=== PATIENT | female | born 1960 | race Caucasian/White ===

== ENCOUNTER 2020-03-03 09:51 | Outpatient (CLI) | payer BC, OTHER, SELFPAY ==
--- NOTE | 2020-03-03 | ECG_ITS ---
Measurements Intervals [place] Rate: 90 P: 61 UT: 161 QRS: 14 QRSD: 92 T: 14 QT: 369 QTc: 453 Interpretive Statements SINUS RHYTHM FREQUENT VENTRICULAR PREMATURE COMPLEXES POSSIBLE LEFT ATRIAL ENLARGEMENT BASELINE ARTIFACT= I, II, III, AVR, AVL, V1-V3, V6 ABNORMAL ECG Electronically Signed On 03-03-2020 10:38:25 GROUTER HELPER by Colin Haas D.O.
== END 2020-03-03 09:52 | disposition home or self-care (01) ==
PROVIDERS: PCP Family Medicine; Visit Provider Podiatrist Foot & Ankle Surgery
DX: R03.0 Elevated blood-pressure reading, without diagnosis of hypertension (principal); R94.31 Abnormal electrocardiogram [ECG] [EKG]
CPT/HCPCS: 93005

== ENCOUNTER 2021-03-30 17:50 | Inpatient (IN) | payer BC, OTHER, SELFPAY ==
--- NOTE | ~2021-03-30 | CT_ITS ---
EXAMINATION: CT abdomen pelvis wo con DATE: 03/30/2021 18:34 INDICATION: Nephrolithiasis presenting with left flank pain TECHNIQUE: Computed tomography (CT) of the abdomen and pelvis was performed without intravenous contr ast. Automated exposure control and iterative reconstruction technique were employed. The dose-length product was 1138.78 mGy-cm. COMPARISON: 02/05/2018 FINDINGS: Lung bases are clear. Heart size is normal. No pericardial or pleural effusion. Diffuse hepatic steat osis. Gallbladder, spleen, pancreas, bilateral adrenal glands and right kidney are normal. There is p rominent left perinephric and periureteral stranding. No hydronephrosis or evident urolithiasis. Deco mpressed bladder, uterus and bilateral adnexa are unremarkable. Several phleboliths in the pelvis. Pa wels are normal. No free intraperitoneal gas or fluid. No pathologically enlarged abdominal or pelvic lymphadenopathy. Mild thoracolumbar spondylosis. Right sacral nerve root stimulator with lead extend ing through the right S3 neural foramen. IMPRESSION: 1. Left perinephric and periureteral stranding but without urolithiasis or associated hydronephrosis. Differential would include either ascending urinary tract infection or recently passed stone. Reviewed, dictated and finalized at location A. L BUSINESS REPRESENTATIVE IMPRESSION: 1. Left perinephric and periureteral stranding but without urolithiasis or asso ciated hydronephrosis. Differential would include either ascending urinary trac t infection or recently passed stone.
[2021-03-30 17:52] VITALS: BP 141/90; PULSE 112; RESP 19; TEMP 37; O2SAT 100
[2021-03-30 18:34] LABS: Hematocrit 38.4 % (37.0-47.0); Hemoglobin 12.7 g/dL (12.0-15.0); Mean Corpuscular HGB Conc 33.1 g/dl (32-36); Mean Corpuscular Hemoglobin 30.9 pg (26-34); Mean Corpuscular Volume 93.4 fl (80-100); Mean Platelet Volume 11.9 fl (7.4-10.4); Platelet Count Result 203 k/mm3 (150-375); Red Blood Count 4.11 M/mm3 (4.2-5.4); Red Cell Distribution Width 13.2 % (11.5-14.5); White Blood Count 18.2 K/mm3 (4.5-10.0)
[2021-03-30] MEDS: HYDROmorphone HCL INJ (*CRX) 1 MG/ML SYR 0.5 MG IV PUSH (18:43)
[2021-03-30] MEDS: SODIUM CHLORIDE 0.9% IV 1,000 ML 999 ML IV CONT ×2 (18:44→23:31)
[2021-03-30] MEDS: ONDANSETRON INJ 4 MG/2 ML VIAL IV PUSH (18:44)
[2021-03-30] MEDS: TAMSULOSIN HCL 0.4 MG CAPSULE PO (18:44)
[2021-03-30 18:46] LABS: Alanine Aminotransferase 46 U/L (4-35); Albumin Level 3.9 g/dL (3.5-5.1); Alkaline Phosphatase 144 U/L (38-126); Anion Gap 9 mmol/L (8-16); Aspartate Amino Transferase 51 U/L (14-36); Bilirubin,Total 1.3 mg/dL (0.2-1.3); Blood Urea Nitrogen 30 mg/dL (7-17); Calcium 8.2 mg/dL (8.4-10.2); Carbon Dioxide 27 mmol/L (22-30); Chloride 90 mmol/L (98-107); Estimated CRCL calculation 52 ml/min; Estimated Glomerular Filt Rate 35; Glucose 333 mg/dL (65-110); Lipase 66 U/L (23-300); Potassium 3.2 mmol/L (3.4-5.0); Sodium 126 mmol/L (137-145)
[2021-03-30 19:02] LABS: Band Neutrophils Percent 12 % (0-6); Lymphocytes Absolute Manual 2.91 K/mm3 (1.1-4.5); Monocytes Absolute Manual 0.54 K/mm3 (0.1-0.90); Monocytes Percent Manual 3 % (3-9); Neutrophils Absolute Manual 14.74 K/mm3 (1.7-7.2); Neutrophils Percent Manual 69 % (46-73); Platelet Estimate Adequate (Adequate); Total Cells Counted 100
[2021-03-30 19:03] LABS: Large Platelets Present
--- NOTE | 2021-03-30 19:20 | PC.NURSE ---
Assuming care of pt.
[2021-03-30 20:10] VITALS: BP 116/67; PULSE 103; RESP 18; O2SAT 96
--- NOTE | 2021-03-30 20:51 | ED.ABDPAIN ---
HPI - Abdominal Pain General Chief Complaint: Abdominal Pain Stated Complaint: flank pain Time Seen by Provider: 03/30/21 18:14 Source: patient and family Mode of arrival: ambulatory Limitations: no limitations History of Present Illness HPI narrative: Patient 61 years old white female presents with left flank pain that started 5 days ago, gradually getting worse. Associated with nausea and chills. History of kidney stone. Patient denies any fever or vomiting. Patient reports a history of gestational diabetes over 30 years ago, last blood work-up was over 2 years ago Related Data Home Medications Medication Instructions Recorded Confirmed fexofenadine 180 mg tablet 180 mg PO DAILY 01/01/19 Allergies Allergy/AdvReac Type Severity Reaction Status Date / Time Cephalosporins Allergy Severe HIVES Verified 12/19/19 10:26 dextromethorphan Allergy Severe RASH Verified 12/19/19 10:26 povidone-iodine Allergy Severe BLISTERS Verified 12/19/19 10:26 Quinolones Allergy Severe HIVES Verified 12/19/19 10:26 soap Allergy Severe BLISTERS Verified 12/19/19 10:26 celecoxib Allergy Intermediate HIVES Verified 12/19/19 10:26 cefaclor Allergy Unknown Unknown Verified 12/19/19 10:26 ciprofloxacin Allergy Unknown unknown Verified 12/19/19 10:26 clarithromycin Allergy Unknown unknown Verified 12/19/19 10:26 nitrofurantoin Allergy Unknown unknown Verified 12/19/19 10:26 ofloxacin Allergy Unknown Hives / Verified 12/19/19 10:26 Red Face Penicillins Allergy Unknown unknown Verified 12/19/19 10:26 pseudoephedrine Allergy Unknown unknown Verified 12/19/19 10:26 Sulfa (Sulfonamide Allergy Unknown unknown Verified 12/19/19 10:26 Antibiotics) sulfanilamide Allergy Unknown unknown Verified 12/19/19 10:26 NITRATE Allergy Mild HIVES Uncoded 01/01/19 15:15 Review of Systems Review of Systems: CONSTITUTIONAL: Denies fever, chills, or sweats. EYES: Denies visual changes, redness, or discharge. ENT: Denies rhinorrhea, congestion, sore throat, or otalgia. CARDIOVASCULAR: Denies chest pain, palpitations, or edema. RESPIRATORY: Denies cough or dyspnea. GASTROINTESTINAL: Denies abdominal pain, nausea, vomiting, or diarrhea. GENITOURINARY: Denies dysuria or hematuria. SKIN: Denies rash or itching. MUSCULOSKELETAL: Denies back pain, joint pain, or myalgia. NEUROLOGIC: Denies headache, numbness, or weakness. PSYCHIATRIC: Denies anxiety or depression. [facility] Past Medical History Medical History Cough Depression GERD (gastroesophageal reflux disease) Hiatal hernia Hypertension Kidney stones [place] (obstructive sleep apnea) Surgical History Surgical History History of esophagogastroduodenoscopy (EGD) 2012 Family History Family History Other Diabetes mellitus Family history of cardiomyopathy Family history of kidney stones Family history of malignant neoplasm of breast in first degree relative Hypertension Social History Social History Smoking status: Never smoker Second hand tobacco smoke exposure: No Alcohol intake: current Substance use: never Substance use type: does not use Additional living arrangements comments: and daughter Gender identity (if verbalized by the patient): Female Spiritual care concerns: No Exam Narrative: General appearance: Well-developed, well-nourished Skin: Normal color Head: Normocephalic, nontraumatic Eyes: Clear conjunctiva ENT: Oropharynx normal, ears normal, nose normal Neck: Supple, nontender Chest and respiratory: Airway patent, no respiratory distress, no accessory muscle use Heart: Regular rate/rhythm Abdomen: Soft, moderate tenderness left flank, no organomegaly, quiet bowel sounds Vascular: Normal peripheral pulses, normal capillary refill. Musculoskeletal: Normal r
[2021-03-30 21:44] LABS: Add Urine Microscopic? YES; Appearance Urine Turbid (Clear); Bacteria Urine 2+ /hpf; Bilirubin Urine Negative (Negative); Blood Urine 1+ (Negative); Color Urine Amber (Yellow); Glucose Urine UA 3+ mg/dL (Negative); Ketones Urine Negative (Negative); Leukocyte Esterase Ur 3+ LEU/UL (Negative); Mucus Urine Moderate /lpf; Nitrate Urine Negative (Negative); Protein Urine 3+ mg/dL (Negative); Specific Grav Ur 1.018 (1.001-1.035); Squamous Epithelial Cell Urine Moderate /hpf (Few); WBC Urine >75 /hpf
[2021-03-30 22:16] VITALS: BP 115/75; PULSE 103; RESP 17; TEMP 37.2; O2SAT 96
[2021-03-30 23:27] VITALS: BP 114/75; PULSE 100; RESP 18; O2SAT 95
[2021-03-30] MEDS: POTASSIUM CHLORIDE 20 MEQ TABLET 40 MEQ PO (23:31)
[2021-03-30 23:32] LABS: INR 1.3; Prothrombin Time 15.2 Seconds (11.1-14.7)
[2021-03-30 23:33] LABS: Lactic Acid Reflex 1.5 mmol/L (0.7-2.1)
[2021-03-30 23:54] LABS: CRP 23.8 mg/dL (<1.0)
[2021-03-31] LABS: Hemoglobin A1C 9.8 % (<5.7)
[2021-03-31] MEDS: ERTAPENEM 1 GM/NS 50 ML 1 GM/50 ML BAG IVPB ×2 (00:25→20:40)
[2021-03-31 00:41] VITALS: BP 99/64; PULSE 95; RESP 18; O2SAT 98
[2021-03-31 01:22] VITALS: BMI 47.2
[2021-03-31 01:23] VITALS: BP 114/62; PULSE 91; RESP 18; TEMP 36.1; O2SAT 97
--- NOTE | 2021-03-31 01:24 | ADMGEN ---
This patient, Antoinette Tran, was admitted to 3 [facility] Surg Room 309-01. Patient/family oriented to hospital policies and general routines including ID bracelet, bed and alarms, visiting hours, pain management, procedures, bathroom and other care routines, personal items, smoking policy, room service/diet, and visiting hours. Information on how to activate the Rapid Response Team has been discussed. Patient/Family are encouraged to report perceived risks to care and to ask questions if they do not understand what they are told or what they should do.
[2021-03-31 01:45] VITALS: BP 114/62; PULSE 91; TEMP 36.1; O2SAT 97
[2021-03-31] MEDS: SODIUM CHLORIDE 0.9% IV 1,000 ML 999 ML IV CONT (02:27)
--- NOTE | 2021-03-31 02:32 | PM.IMHP ---
H&P: HPI History of Present Illness Date/Time: 03/31/21 02:32 Chief Complaint: Left flank pain Narrative: 61-year-old female with a past medical history of urge incontinence, obesity class 3, obstructive sleep apnea, diabetes, kidney stones and depression who presented to the with flank pain for 5 days. The patient suspected that she had a recurrent kidney stones or was not too concerned but decided to come in when her pain continued to progressively worsen. She reports that is worse the pain is 6/10 in intensity and was aching in nature. She denied any relieving factors and her pain was worse with percussion over left flank. Although she had been having some chills and subjective fevers at home. She was checked her temperature and her thermometer did not demonstrate true fever. She denied any dysuria. She had not noticed any foul-smelling urine. Over the last 24 hours she had went from heard chronic urinary frequency due to urge incontinence and instead was only able to urinate small amounts. She denies any hematuria. CT demonstrated left-sided pyelonephritis. She reports she has not had a kidney infection in over 20 years. On arrival to the ER patient was noted be hyperglycemic. She did initially denied a history of diabetes but she had a hemoglobin A1c within the computer system from 2019 that was elevated at 6.9. She denies any polydipsia or polyuria from baseline. She she denies numbness or tingling of her extremities. He has not had any cough or congestion. She is vaccinated against COVID-19. She has obstructive sleep apnea but is compliant with her CPAP therapy with pressures of 12. She does have CVA tenderness on exam. She denies any changes in her bowel habits. Review of Systems Review of Systems: 12 systems were reviewed with pertinent positives and negatives per HPI. Except as documented in the HPI, all other systems were reviewed and are negative. [facility] Past Medical History Medical History (Updated 03/31/21 @ 09:33 by Lala Trejo DO) BMI 45.0-49.9, adult Depression Diabetes mellitus Previously diet controlled with A1c of 6.23 December 2018 now A1c 9.24 March 2021 GERD (gastroesophageal reflux disease) Hiatal hernia Hypertension Kidney stones [place] (obstructive sleep apnea) Urge incontinence Surgical History Surgical History History of esophagogastroduodenoscopy (EGD) 2012 Family History Family History Other Diabetes mellitus Family history of cardiomyopathy Family history of kidney stones Family history of malignant neoplasm of breast in first degree relative Hypertension Social History Social History Smoking status: Never smoker Second hand tobacco smoke exposure: No Alcohol intake: current Drinks per week: 1 Substance use: never Substance use type: does not use Additional living arrangements comments: and daughter Gender identity (if verbalized by the patient): Female Spiritual care concerns: No Meds Home Medications and Allergies Home Medications Medication Instructions Recorded Confirmed Type valsartan 160 1 tablet PO DAILY #90 tablet 08/24/20 03/31/21 Rx mg-hydrochlorothiazide 12.5 mg tablet omeprazole 40 mg capsule,delayed 40 mg PO DAILY #90 cap 12/02/20 03/31/21 Rx release desvenlafaxine 100 mg 100 mg PO DAILY #90 tablet 03/05/21 03/31/21 Rx tablet,extended release 24 hour aripiprazole 5 mg PO DAILY 03/31/21 03/31/21 History atorvastatin 10 mg PO DAILY 03/31/21 03/31/21 History hydrochlorothiazide 12.5 mg PO DAILY 03/31/21 03/31/21 History montelukast 10 mg PO HS 03/31/21 03/31/21 History nortriptyline 50 mg PO HS 03/31/21 03/31/21 History Allergies Allergy/AdvReac Type Severity Reaction Status Date / Time Cephalosporins Allergy Severe HIVES Verified 12/19/19 1
[2021-03-31 03:22] LABS: Glucose Point of Care 287 mg/dl (65-105)
[2021-03-31] MEDS: SODIUM CHLORIDE 0.9% IV 1,000 ML 125 ML IV CONT ×3 (03:48→23:33)
--- NOTE | 2021-03-31 04:27 | PHAR ---
PHARMACY VERIFIED HOME MED: DESVENLAFAXINE 100 MG ER TABLET TAKE ONE TABLET BY MOUTH ONCE DAILY
[2021-03-31 04:39] LABS: Hematocrit 32.9 % (37.0-47.0); Hemoglobin 10.8 g/dL (12.0-15.0); Mean Corpuscular HGB Conc 32.8 g/dl (32-36); Mean Corpuscular Hemoglobin 30.6 pg (26-34); Mean Corpuscular Volume 93.2 fl (80-100); Mean Platelet Volume 11.8 fl (7.4-10.4); Platelet Count Result 152 k/mm3 (150-375); Red Blood Count 3.53 M/mm3 (4.2-5.4); Red Cell Distribution Width 13.2 % (11.5-14.5); White Blood Count 14.1 K/mm3 (4.5-10.0)
[2021-03-31 04:56] LABS: Anion Gap 10 mmol/L (8-16); Blood Urea Nitrogen 32 mg/dL (7-17); Calcium 6.9 mg/dL (8.4-10.2); Carbon Dioxide 22 mmol/L (22-30); Chloride 99 mmol/L (98-107); Estimated CRCL calculation 49 ml/min; Estimated Glomerular Filt Rate 33; Glucose 280 mg/dL (65-110); Potassium 3.5 mmol/L (3.4-5.0); Sodium 131 mmol/L (137-145)
[2021-03-31 05:38] LABS: Band Neutrophils Percent 15 % (0-6); Lymphocytes Absolute Manual 1.97 K/mm3 (1.1-4.5); Monocytes Absolute Manual 1.12 K/mm3 (0.1-0.90); Monocytes Percent Manual 8 % (3-9); Neutrophils Absolute Manual 10.99 K/mm3 (1.7-7.2); Neutrophils Percent Manual 63 % (46-73); Platelet Estimate Adequate (Adequate); Total Cells Counted 100
[2021-03-31 05:49] VITALS: BP 144/62; PULSE 95; RESP 18; TEMP 35.9; O2SAT 98
[2021-03-31] MEDS: ENOXAPARIN 40 MG/0.4 ML SYRINGE SUB-Q ×2 (09:18→20:39)
[2021-03-31] MEDS: VALSARTAN 160 MG TABLET PO (09:20)
[2021-03-31] MEDS: ATORVASTATIN 10 MG TABLET PO (09:20)
[2021-03-31] MEDS: hydroCHLOROthiazide 12.5 MG CAPSULE PO (09:20)
[2021-03-31] MEDS: PANTOPRAZOLE 40 MG TABLET PO (09:21)
[2021-03-31] MEDS: INSULIN ASPART (*BKC) 100 UNITS/ML SUB-Q ×3 (09:30→16:34)
[2021-03-31 10:25] LABS: Glucose Point of Care 273 mg/dl (65-105)
[2021-03-31 12:13] LABS: Glucose Point of Care 287 mg/dl (65-105)
--- NOTE | 2021-03-31 13:10 | PM.IMPN ---
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 I requested blood cultures be obtained in the ER unfortunately this was not performed. Blood cultures have been ordered at this time. She has numerous drug allergies has been started on ertapenem. Urine cultures are pending. Patient has acute kidney injury likely due to hypovolemia. 30 mL/kilos bolus was ordered in the ER but due to patient's body habitus this would require the patient receive over 4 L fluid bolus at 1 time. I have requested nursing staff only give the patient 3 L in fluid bolus and will then start more conservative fluids with normal saline at 125 mL an hour. Will repeat CBC and BMP in a.m.. Will monitor strict I&O's. Will continue patient's home Arb as long his repeat creatinine in a.m. at has normalized. Patient have borderline low potassium. Will give 40 mEq p.o. potassium and repeat BMP with a.m. labs. The patient technically had diabetes back in 2019 with a hemoglobin A1c of 2.9. She is not on diabetic medications at home. Her hemoglobin A1c is currently above 8 indicating uncontrolled diabetes. The patient will need started on oral hypoglycemic agents prior to discharge. For the short-term will start patient on high-dose sliding scale insulin with Accu-Cheks a.c. HS. Auto titrating CPAP has been ordered. 03/31/2021 Interval history: CT scan of the abdomen shows patient is a pyelonephritis patient being treated with ertapenem, will follow-up on urine culture and further recommendation to follow, will have a PT OT evaluate the patient and further recommendation to follow. Subjective Date/time seen: 03/31/21 13:10 Chief Complaint: Left flank pain HPI-Narrative: 61-year-old female with a past medical history of urge incontinence, obesity class 3, obstructive sleep apnea, diabetes, kidney stones and depression who presented to the with flank pain for 5 days. The patient suspected that she had a recurrent kidney stones or was not too concerned but decided to come in when her pain continued to progressively worsen. She reports that is worse the pain is 6/10 in intensity and was aching in nature. She denied any relieving factors and her pain was worse with percussion over left flank. Although she had been having some chills and subjective fevers at home. She was checked her temperature and her thermometer did not demonstrate true fever. She denied any dysuria. She had not noticed any foul-smelling urine. Over the last 24 hours she had went from heard chronic urinary frequency due to urge incontinence and instead was only able to urinate small amounts. She denies any hematuria. CT demonstrated left-sided pyelonephritis. She reports she has not had a kidney infection in over 20 years. On arrival to the ER patient was noted be hyperglycemic. She did initially denied a history of diabetes but she had a hemoglobin A1c within the computer system from 2019 that was elevated at 6.9. She denies any polydipsia or polyuria from baseline. She she denies numbness or tingling of her extremities. He has not had any coug
[2021-03-31 14:00] VITALS: BP 125/68; PULSE 95; RESP 18; TEMP 36.8; O2SAT 96
[2021-03-31 16:45] LABS: Glucose Point of Care 249 mg/dl (65-105)
[2021-03-31] MEDS: ARIPiprazole 5 MG TABLET PO (20:39)
[2021-03-31] MEDS: NORTRIPTYLINE HCL 25 MG CAPSULE 50 MG PO (20:39)
[2021-03-31] MEDS: MONTELUKAST SODIUM 10 MG TABLET PO (20:39)
[2021-03-31 21:10] LABS: Glucose Point of Care 225 mg/dl (65-105)
[2021-03-31 22:00] VITALS: BP 133/79; PULSE 103; RESP 20; TEMP 36.3; O2SAT 95
[2021-04-01] VITALS (7 sets, daily range): BP systolic 132–157; BP diastolic 85–98; PULSE 94–99; RESP 18–28; TEMP 36.1–37.6; O2SAT 91–93; BMI 47.2
[2021-04-01 06:43] LABS: Hematocrit 31.3 % (37.0-47.0); Hemoglobin 10.2 g/dL (12.0-15.0); Mean Corpuscular HGB Conc 32.6 g/dl (32-36); Mean Corpuscular Hemoglobin 30.4 pg (26-34); Mean Corpuscular Volume 93.2 fl (80-100); Mean Platelet Volume 11.3 fl (7.4-10.4); Platelet Count Result 145 k/mm3 (150-375); Red Blood Count 3.36 M/mm3 (4.2-5.4); Red Cell Distribution Width 13.5 % (11.5-14.5); White Blood Count 14.3 K/mm3 (4.5-10.0)
[2021-04-01 07:00] LABS: Alanine Aminotransferase 32 U/L (4-35); Alkaline Phosphatase 148 U/L (38-126); Anion Gap 5 mmol/L (8-16); Aspartate Amino Transferase 46 U/L (14-36); Bilirubin,Total 0.8 mg/dL (0.2-1.3); Blood Urea Nitrogen 22 mg/dL (7-17); Calcium 7.6 mg/dL (8.4-10.2); Carbon Dioxide 25 mmol/L (22-30); Chloride 101 mmol/L (98-107); Estimated CRCL calculation 70 ml/min; Estimated Glomerular Filt Rate 51; Glucose 208 mg/dL (65-110); Magnesium 1.8 mg/dL (1.6-2.3); Potassium 3.1 mmol/L (3.4-5.0); Sodium 131 mmol/L (137-145)
[2021-04-01 07:44] LABS: Glucose Point of Care 174 mg/dl (65-105)
[2021-04-01] MEDS: VALSARTAN 160 MG TABLET PO (09:46)
[2021-04-01] MEDS: hydroCHLOROthiazide 12.5 MG CAPSULE PO (09:46)
[2021-04-01] MEDS: PANTOPRAZOLE 40 MG TABLET PO (09:48)
[2021-04-01] MEDS: ENOXAPARIN 40 MG/0.4 ML SYRINGE SUB-Q ×2 (09:48→20:23)
[2021-04-01] MEDS: ATORVASTATIN 10 MG TABLET PO (09:48)
[2021-04-01] MEDS: POTASSIUM CHLORIDE 20 MEQ PACKET (FOR LIQUID) 40 MEQ PO (10:00)
[2021-04-01] MEDS: SODIUM CHLORIDE 0.9% IV 1,000 ML 125 ML IV CONT ×2 (11:19→20:25)
[2021-04-01 11:28] LABS: Glucose Point of Care 229 mg/dl (65-105)
[2021-04-01] MEDS: INSULIN ASPART (*BKC) 100 UNITS/ML SUB-Q ×2 (13:19→18:02)
--- NOTE | 2021-04-01 13:33 | PM.IMPN ---
Progress Note: A&P Assessment and Plan (1) Acute pyelonephritis: Code(s): N10 - Acute pyelonephritis Status: Acute (2) [place] (obstructive sleep apnea): Code(s): G47.33 - Obstructive sleep apnea (adult) (pediatric) Status: Acute (3) Acute hypokalemia: Code(s): E87.6 - Hypokalemia Status: Acute (4) Acute kidney injury: Code(s): N17.9 - Acute kidney failure, unspecified Status: Acute (5) Diabetes mellitus with hyperglycemia: Qualifiers: Diabetes mellitus supervisor intermediates insulin use: without supervisor intermediates use Diabetes mellitus type: type 2 Qualified Code(s): E11.65 - Type 2 diabetes mellitus with hyperglycemia Code(s): E11.65 - Type 2 diabetes mellitus with hyperglycemia Status: Acute Additional Plan Patient fit sepsis criteria with tachycardia, leukocytosis with left shift and acute end-organ damage in the setting of acute left pyelonephritis. I requested blood cultures be obtained in the ER unfortunately this was not performed. Blood cultures have been ordered at this time. She has numerous drug allergies has been started on ertapenem. Urine cultures are pending. Patient has acute kidney injury likely due to hypovolemia. 30 mL/kilos bolus was ordered in the ER but due to patient's body habitus this would require the patient receive over 4 L fluid bolus at 1 time. I have requested nursing staff only give the patient 3 L in fluid bolus and will then start more conservative fluids with normal saline at 125 mL an hour. Will repeat CBC and BMP in a.m.. Will monitor strict I&O's. Will continue patient's home Arb as long his repeat creatinine in a.m. at has normalized. Patient have borderline low potassium. Will give 40 mEq p.o. potassium and repeat BMP with a.m. labs. The patient technically had diabetes back in 2019 with a hemoglobin A1c of 2.9. She is not on diabetic medications at home. Her hemoglobin A1c is currently above 8 indicating uncontrolled diabetes. The patient will need started on oral hypoglycemic agents prior to discharge. For the short-term will start patient on high-dose sliding scale insulin with Accu-Cheks a.c. HS. Auto titrating CPAP has been ordered. 03/31/2021 Interval history: CT scan of the abdomen shows patient is a pyelonephritis patient being treated with ertapenem, will follow-up on urine culture and further recommendation to follow, will have a PT OT evaluate the patient and further recommendation to follow. 04/01/2021 Interval history: CT scan of the abdomen showed patient has pyelonephritis, urine culture is growing E coli sensitivities showed sensitive to ertapenem, patient being treated with ertapenem, will follow-up on urine culture and further recommendation to follow,patient with hyperglycemia her A1c 9.8, will consult fire truck driver, will start the patient on metformin and Glucotrol will monitor, will have a PT OT evaluate the patient and further recommendation to follow. Subjective Date/time seen: 04/01/21 13:33 03/31/2021 Interval history: CT scan of the abdomen shows patient is a pyelonephritis patient being treated with ertapenem, will follow-up on urine culture and further recommendation to follow, will have a PT OT evaluate the patient and further recommendation to follow. 04/01/2021 Interval history: CT scan of the abdomen showed patient has pyelonephritis, urine culture is growing E coli sensitivities showed sensitive to ertapenem, patient being treated with ertapenem, will follow-up on urine culture and further recommendation to follow,patient with hyperglycemia her A1c 9.8, will consult fire truck driver, will start the patient on metformin and Glucotrol will monitor, will have a PT OT evaluate the patient and further recommendation to follow. Review of Systems Review of Systems: All systems reviewed & are unremarkable except as noted in HPI and below Exam Narrative: morbidly obese Patient is
[2021-04-01 16:53] LABS: Glucose Point of Care 208 mg/dl (65-105)
--- NOTE | 2021-04-01 18:18 | PC.NURSE ---
@1652- Pt states, While i was eating shredded beef I feel like I was choking Pt further states she no longer feel like choking after sipping on some water. This nurse conducted a focus assessment and pt appeared to be in no sign of distress. Pt was advised to notify nurse if this event occur again. Pt verbalized understanding.
[2021-04-01] MEDS: ERTAPENEM 1 GM/NS 50 ML 1 GM/50 ML BAG IVPB (20:23)
[2021-04-01] MEDS: ARIPiprazole 5 MG TABLET PO (20:24)
[2021-04-01] MEDS: MONTELUKAST SODIUM 10 MG TABLET PO (20:24)
[2021-04-01] MEDS: NORTRIPTYLINE HCL 25 MG CAPSULE 50 MG PO (20:24)
[2021-04-01 21:34] LABS: Glucose Point of Care 225 mg/dl (65-105)
[2021-04-02] MEDS: SODIUM CHLORIDE 0.9% IV 1,000 ML 125 ML IV CONT ×3 (03:57→20:36)
[2021-04-02 05:44] VITALS: BP 153/95; PULSE 97; RESP 18; TEMP 36.9; O2SAT 90
[2021-04-02] MEDS: glipiZIDE 5 MG TABLET PO (06:03)
[2021-04-02 07:12] LABS: Alanine Aminotransferase 39 U/L (4-35); Albumin Level 3.1 g/dL (3.5-5.1); Alkaline Phosphatase 169 U/L (38-126); Anion Gap 10 mmol/L (8-16); Aspartate Amino Transferase 60 U/L (14-36); Bilirubin,Total 0.8 mg/dL (0.2-1.3); Blood Urea Nitrogen 16 mg/dL (7-17); Calcium 7.7 mg/dL (8.4-10.2); Carbon Dioxide 24 mmol/L (22-30); Chloride 100 mmol/L (98-107); Estimated CRCL calculation 77 ml/min; Estimated Glomerular Filt Rate 57; Glucose 191 mg/dL (65-110); Hematocrit 32.4 % (37.0-47.0); Hemoglobin 10.6 g/dL (12.0-15.0); Magnesium 1.9 mg/dL (1.6-2.3); Mean Corpuscular HGB Conc 32.7 g/dl (32-36); Mean Corpuscular Hemoglobin 30.5 pg (26-34); Mean Corpuscular Volume 93.1 fl (80-100); Mean Platelet Volume 11.6 fl (7.4-10.4); Platelet Count Result 177 k/mm3 (150-375); Potassium 3.3 mmol/L (3.4-5.0); Red Blood Count 3.48 M/mm3 (4.2-5.4); Red Cell Distribution Width 13.5 % (11.5-14.5); Sodium 134 mmol/L (137-145); White Blood Count 13.1 K/mm3 (4.5-10.0)
[2021-04-02 08:07] LABS: Glucose Point of Care 142 mg/dl (65-105)
[2021-04-02] MEDS: ATORVASTATIN 10 MG TABLET PO (10:30)
[2021-04-02] MEDS: hydroCHLOROthiazide 12.5 MG CAPSULE PO (10:30)
[2021-04-02] MEDS: ENOXAPARIN 40 MG/0.4 ML SYRINGE SUB-Q ×2 (10:30→20:38)
[2021-04-02] MEDS: POTASSIUM CHLORIDE 20 MEQ TABLET PO (10:30)
[2021-04-02] MEDS: PANTOPRAZOLE 40 MG TABLET PO (10:31)
[2021-04-02] MEDS: VALSARTAN 160 MG TABLET PO (10:31)
[2021-04-02 11:19] LABS: Glucose Point of Care 108 mg/dl (65-105)
[2021-04-02] MEDS: ERTAPENEM 1 GM/NS 50 ML 1 GM/50 ML BAG IVPB (12:07)
[2021-04-02 13:31] VITALS: BP 146/96; PULSE 94; RESP 18; TEMP 36.3; O2SAT 97
--- NOTE | 2021-04-02 14:14 | PM.IMPN ---
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 I requested blood cultures be obtained in the ER unfortunately this was not performed. Blood cultures have been ordered at this time. She has numerous drug allergies has been started on ertapenem. Urine cultures are pending. Patient has acute kidney injury likely due to hypovolemia. 30 mL/kilos bolus was ordered in the ER but due to patient's body habitus this would require the patient receive over 4 L fluid bolus at 1 time. I have requested nursing staff only give the patient 3 L in fluid bolus and will then start more conservative fluids with normal saline at 125 mL an hour. Will repeat CBC and BMP in a.m.. Will monitor strict I&O's. Will continue patient's home Arb as long his repeat creatinine in a.m. at has normalized. Patient have borderline low potassium. Will give 40 mEq p.o. potassium and repeat BMP with a.m. labs. The patient technically had diabetes back in 2019 with a hemoglobin A1c of 2.9. She is not on diabetic medications at home. Her hemoglobin A1c is currently above 8 indicating uncontrolled diabetes. The patient will need started on oral hypoglycemic agents prior to discharge. For the short-term will start patient on high-dose sliding scale insulin with Accu-Cheks a.c. HS. Auto titrating CPAP has been ordered. 03/31/2021 Interval history: CT scan of the abdomen shows patient is a pyelonephritis patient being treated with ertapenem, will follow-up on urine culture and further recommendation to follow, will have a PT OT evaluate the patient and further recommendation to follow. 04/01/2021 Interval history: CT scan of the abdomen showed patient has pyelonephritis, urine culture is growing E coli sensitivities showed sensitive to ertapenem, patient being treated with ertapenem, will follow-up on urine culture and further recommendation to follow,patient with hyperglycemia her A1c 9.8, will consult environmental educator, will start the patient on metformin and Glucotrol will monitor, will have a PT OT evaluate the patient and further recommendation to follow. 04/02/2021 Interval history: CT scan of the abdomen showed patient has pyelonephritis, urine culture is growing E coli sensitivities showed sensitive to ertapenem, patient being treated with ertapenem, and urine culture showed patient patient sensitive ertapenem, however due to nursing error patient did not receive her antibiotics for last 2 days will resume today, patient with hyperglycemia her A1c 9.8, will consult environmental educator, will start the patient on metformin and Glucotrol however pacing allergic to post medication, patient to be seen by environmental educator and further recommendation to follow, will have a PT OT evaluate the patient and further recommendation to follow. Subjective Date/time seen: 04/02/21 14:14 04/02/2021 Interval history: CT scan of the abdomen showed patient has pyelonephritis, urine culture is growing E coli sensitivities showed sensitive to ertapenem, patient being treated with ertapenem, and urine culture showed patie
[2021-04-02 16:21] LABS: Glucose Point of Care 117 mg/dl (65-105)
[2021-04-02 20:20] VITALS: PULSE 91; RESP 20; O2SAT 97
[2021-04-02] MEDS: ARIPiprazole 5 MG TABLET PO (20:37)
[2021-04-02] MEDS: MONTELUKAST SODIUM 10 MG TABLET PO (20:38)
[2021-04-02] MEDS: NORTRIPTYLINE HCL 25 MG CAPSULE 50 MG PO (20:39)
[2021-04-02 22:00] VITALS: BP 153/91; PULSE 91; RESP 20; TEMP 36.8; O2SAT 97
[2021-04-02 22:10] LABS: Glucose Point of Care 144 mg/dl (65-105)
[2021-04-03] MEDS: SODIUM CHLORIDE 0.9% IV 1,000 ML 125 ML IV CONT ×2 (04:41→12:52)
[2021-04-03 06:00] VITALS: BP 153/86; PULSE 87; RESP 20; TEMP 36.7; O2SAT 99
[2021-04-03 06:20] LABS: Hematocrit 30.9 % (37.0-47.0); Hemoglobin 10.3 g/dL (12.0-15.0); Mean Corpuscular HGB Conc 33.3 g/dl (32-36); Mean Corpuscular Volume 93.1 fl (80-100); Platelet Count Result 214 k/mm3 (150-375); Red Blood Count 3.32 M/mm3 (4.2-5.4); Red Cell Distribution Width 13.6 % (11.5-14.5); White Blood Count 13.4 K/mm3 (4.5-10.0)
[2021-04-03 06:29] LABS: Alanine Aminotransferase 43 U/L (4-35); Alkaline Phosphatase 161 U/L (38-126); Anion Gap 9 mmol/L (8-16); Aspartate Amino Transferase 61 U/L (14-36); Bilirubin,Total 0.7 mg/dL (0.2-1.3); Blood Urea Nitrogen 14 mg/dL (7-17); Carbon Dioxide 26 mmol/L (22-30); Chloride 101 mmol/L (98-107); Estimated CRCL calculation 85 ml/min; Estimated Glomerular Filt Rate > 60; Glucose 150 mg/dL (65-110); Magnesium 1.9 mg/dL (1.6-2.3); Potassium 3.3 mmol/L (3.4-5.0); Sodium 136 mmol/L (137-145)
[2021-04-03 08:06] LABS: Glucose Point of Care 137 mg/dl (65-105)
[2021-04-03] MEDS: hydroCHLOROthiazide 12.5 MG CAPSULE PO (08:25)
[2021-04-03] MEDS: ENOXAPARIN 40 MG/0.4 ML SYRINGE SUB-Q (08:25)
[2021-04-03] MEDS: ATORVASTATIN 10 MG TABLET PO (08:25)
[2021-04-03] MEDS: VALSARTAN 160 MG TABLET PO (08:25)
[2021-04-03 12:03] LABS: Glucose Point of Care 163 mg/dl (65-105)
[2021-04-03] MEDS: ERTAPENEM 1 GM/NS 50 ML 1 GM/50 ML BAG IVPB (12:49)
--- NOTE | 2021-04-03 13:07 | PM.DS ---
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 The patient suspected that she had a recurrent kidney stones or was not too concerned but decided to come in when her pain continued to progressively worsen. She reports that is worse the pain is 6/10 in intensity and was aching in nature. She denied any relieving factors and her pain was worse with percussion over left flank. Although she had been having some chills and subjective fevers at home. She was checked her temperature and her thermometer did not demonstrate true fever. She denied any dysuria. She had not noticed any foul-smelling urine. Over the last 24 hours she had went from heard chronic urinary frequency due to urge incontinence and instead was only able to urinate small amounts. She denies any hematuria. CT demonstrated left-sided pyelonephritis. She reports she has not had a kidney infection in over 20 years. On arrival to the ER patient was noted be hyperglycemic. She did initially denied a history of diabetes but she had a hemoglobin A1c within the computer system from 2019 that was elevated at 6.9. She denies any polydipsia or polyuria from baseline. She she denies numbness or tingling of her extremities. He has not had any cough or congestion. She is vaccinated against COVID-19. She has obstructive sleep apnea but is compliant with her CPAP therapy with pressures of 12. She does have CVA tenderness on exam. She denies any changes in her bowel habits. Hospital Course: [facility] [place], [place] [id number] Hospitalist Progress NoteSigned Patient: Antoinette Tran KMR#: [id number]: 2Acct:[id number]/Sex: 61 / FADM Date: 03/30/21Loc: [id number] Dr: Lala Trejo DO cc: ~ Progress Note: A&P Assessment and Plan (1) Acute pyelonephritis: Code(s): N10 - Acute pyelonephritis Status: Acute (2) [place] (obstructive sleep apnea): Code(s): G47.33 - Obstructive sleep apnea (adult) (pediatric) Status: Acute (3) Acute hypokalemia: Code(s): E87.6 - Hypokalemia Status: Acute (4) Acute kidney injury: Code(s): N17.9 - Acute kidney failure, unspecified Status: Acute (5) Diabetes mellitus with hyperglycemia: Qualifiers: Diabetes mellitus type: type 2 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 I requested blood cultures be obtained in the ER unfortunately this was not performed. Blood cultures have been ordered at this time. She has numerous drug
[2021-04-03 14:00] VITALS: BP 149/86; PULSE 87; RESP 18; TEMP 36.1; O2SAT 98
== END 2021-04-03 16:30 | disposition home or self-care (01) | DRG 690 ==
LOC: ANHED 22:19 → ANH3MEDSUR 03-31 13:46
PROVIDERS: Admitting Provider Internal Medicine; Emergency Provider Emergency Medicine; PCP Family Medicine; Visit Provider Family Medicine
DX: N39.0 Urinary tract infection, site not specified (principal); Z68.42 Body mass index [BMI] 45.0-49.9, adult; N17.9 Acute kidney failure, unspecified; B96.20 Unspecified Escherichia coli [E. coli] as the cause of diseases classified elsewhere; E87.6 Hypokalemia; E11.65 Type 2 diabetes mellitus with hyperglycemia; E66.01 Morbid (severe) obesity due to excess calories; F32.A Depression, unspecified; G47.33 Obstructive sleep apnea (adult) (pediatric); I10 Essential (primary) hypertension; K21.9 Gastro-esophageal reflux disease without esophagitis; Z88.0 Allergy status to penicillin; Z87.442 Personal history of urinary calculi; Z88.2 Allergy status to sulfonamides
CPT/HCPCS: 36415; 51701; 74176; 80048; 80053; 81001; 82948; 83036; 83605; 83690; 83735; 85025; 85027; 85610; 85730; 86140; 87040; 87077; 87086; 87186; 94660; 96361; 96374; 96375; 99285; A9270; J0131; J1170; J1335; J1650; J1815; J2405; J7030

== ENCOUNTER 2021-05-26 10:53 | Outpatient (RCR) | payer BC, OTHER, SELFPAY ==
[2021-05-26 10:59] VITALS: BMI 45.3
[2021-05-26 11:05] VITALS: BMI 45.3
== END 2021-08-10 13:19 | disposition home or self-care (01) ==
LOC: ANHDMC 10:53
PROVIDERS: PCP Family Medicine; Visit Provider Physician Assistant
DX: E11.65 Type 2 diabetes mellitus with hyperglycemia (principal); Z71.3 Dietary counseling and surveillance
CPT/HCPCS: 97802

== ENCOUNTER 2021-07-27 09:49 | Outpatient (CLI) | payer BC, OTHER, SELFPAY ==
[2021-07-27 10:20] LABS: Hemoglobin A1C 6.2 % (<5.7)
[2021-07-27 10:23] LABS: Alanine Aminotransferase 30 U/L (6-35); Albumin Level 4.5 g/dL (3.5-5.1); Alkaline Phosphatase 105 U/L (38-126); Anion Gap 8 mmol/L (8-16); Aspartate Amino Transferase 37 U/L (14-36); Bilirubin,Total 0.3 mg/dL (0.2-1.3); Blood Urea Nitrogen 23 mg/dL (7-17); Calcium 9.1 mg/dL (8.4-10.2); Carbon Dioxide 30 mmol/L (22-30); Chloride 104 mmol/L (98-107); Cholesterol 154 mg/dL (0-200); Estimated Glomerular Filt Rate 46; Glucose 127 mg/dL (65-110); HDL Direct 35 mg/dL; Potassium 3.7 mmol/L (3.4-5.0); Sodium 142 mmol/L (137-145); Triglycerides 123 mg/dL (<150)
[2021-07-27 10:34] LABS: LDL Cholesterol Direct 82 mg/dL
== END 2021-07-27 09:50 | disposition home or self-care (01) ==
LOC: ANHLAB 09:51
PROVIDERS: PCP Family Medicine; Visit Provider Family Medicine
DX: E11.65 Type 2 diabetes mellitus with hyperglycemia (principal); I10 Essential (primary) hypertension; Z13.1 Encounter for screening for diabetes mellitus
CPT/HCPCS: 36415; 80053; 80061; 83036

== ENCOUNTER 2021-12-14 14:45 | Outpatient (CLI) | payer BC, OTHER, SELFPAY ==
--- NOTE | ~2021-12-14 | XR_ITS ---
XR sacrum coccyx min 2V DATE: 12/14/2021 15:07 INDICATION: Overactive bladder TECHNIQUE: AP and lateral views COMPARISON: None FINDINGS: Mild lumbar levoscoliosis. No pelvic fracture or bone destruction. There is mild right ost eitis pubis. The sacroiliac joints are intact. No sacral or coccygeal fracture or bone destruction i s evident. There is a posterior right battery pack with lead extending through the right S3 neural foramen poste roanteriorly. IMPRESSION: Right sacral neural foraminal neurotransmitter lead Mild right osteitis pubis Reviewed, dictated and finalized at location A.
== END 2021-12-14 14:46 | disposition home or self-care (01) ==
PROVIDERS: PCP Family Medicine; Visit Provider Urology
DX: N32.81 Overactive bladder (principal); M86.8X8 Other osteomyelitis, other site; Z96.82 Presence of neurostimulator
CPT/HCPCS: 72220

== ENCOUNTER 2022-01-28 08:02 | Outpatient (CLI) | payer BC, OTHER, SELFPAY ==
[2022-01-28 08:36] LABS: Basophils Absolute Auto 0.1 K/mm3 (0.0-0.1); Basophils Percent Auto 0.7 % (0.2-1.2); Eosinophils Absolute Auto 0.4 K/mm3 (0-0.3); Eosinophils Percent Auto 3.3 % (0-4.4); Hematocrit 41.1 % (37.0-47.0); Hemoglobin 13.2 g/dL (12.0-15.0); Immature Granulocyte Absolute 0.04 K/mm3 (0.00-0.031); Immature Granulocyte Percent A 0.4 % (0-0.5); Lymphocytes Absolute Auto 5.01 K/mm3 (0.9-3.2); Lymphocytes Percent Auto 47.2 % (18.3-44.2); Mean Corpuscular HGB Conc 32.1 g/dl (32-36); Mean Corpuscular Hemoglobin 28.9 pg (26-34); Mean Corpuscular Volume 89.9 fl (80-100); Monocytes Absolute Auto 0.8 K/mm3 (0.1-0.6); Monocytes Percent Auto 7.3 % (2.6-8.5); Neutrophils Absolute Auto 4.4 K/mm3 (1.3-6.7); Neutrophils Percent Auto 41.1 % (45.5-73.1); Platelet Count Result 242 k/mm3 (150-375); Red Blood Count 4.57 M/mm3 (4.2-5.4); White Blood Count 10.6 K/mm3 (4.5-10.0)
[2022-01-28 09:39] LABS: Alanine Aminotransferase 24 U/L (6-35); Albumin Level 4.4 g/dL (3.5-5.1); Alkaline Phosphatase 94 U/L (38-126); Anion Gap 7 mmol/L (8-16); Aspartate Amino Transferase 33 U/L (14-36); Bilirubin,Total 0.6 mg/dL (0.2-1.3); Blood Urea Nitrogen 18 mg/dL (7-17); Carbon Dioxide 29 mmol/L (22-30); Chloride 101 mmol/L (98-107); Cholesterol 167 mg/dL (0-200); Estimated Glomerular Filt Rate 57; Glucose 123 mg/dL (65-110); HDL Direct 42 mg/dL; Potassium 3.5 mmol/L (3.4-5.0); Sodium 137 mmol/L (137-145); Triglycerides 121 mg/dL (<150)
[2022-01-28 09:49] LABS: LDL Cholesterol Direct 80 mg/dL
[2022-01-28 10:50] LABS: Hemoglobin A1C 6.1 % (<5.7)
[2022-01-28 14:33] LABS: Vitamin D 25 Hydroxy 43.3 ng/mL
== END 2022-01-28 08:03 | disposition home or self-care (01) ==
LOC: ANHLAB 08:04
PROVIDERS: PCP Family Medicine; Visit Provider Family Medicine
DX: R53.83 Other fatigue (principal); E55.9 Vitamin D deficiency, unspecified; E11.9 Type 2 diabetes mellitus without complications; E78.2 Mixed hyperlipidemia; D64.9 Anemia, unspecified
CPT/HCPCS: 36415; 80053; 80061; 82306; 83036; 84443; 85025

== ENCOUNTER → 2022-03-17 13:24 | Outpatient (CLI) | payer BC, OTHER, SELFPAY ==
--- NOTE | ~2022-03-17 | MM_ITS ---
EXAMINATION: MM screening tarsha BI w tomeka HISTORY: Screening TECHNIQUE: Craniocaudal and mediolateral oblique 3-D tomosynthesis images were obtained and synthetic 2-D images were generated. CAD analysis was submitted and interpreted. COMPARISON: Comparison to multiple prior studies sequentially, with oldest reviewed study dated 10/31. BREAST PARENCHYMAL COMPOSITION: Breast composed of scattered areas of fibroglandular density FINDINGS: There is no evidence of suspicious mass, calcification, or architectural distortion to sugg est malignancy in either breast. There has been no suspicious interval change. IMPRESSION: 1. No mammographic evidence of malignancy. 2. Recommend routine screening mammography in one year. BI-RADS Category 1: Negative Reviewed, dictated and finalized at location A. ICAL TRIAL ASSISTANT
== END ==
PROVIDERS: PCP Family Medicine; Visit Provider Obstetrics & Gynecology
DX: Z12.31 Encounter for screening mammogram for malignant neoplasm of breast (principal)
CPT/HCPCS: 77063; 77067

== ENCOUNTER → 2022-03-19 14:10 | Outpatient (CLI) | payer BC, OTHER, SELFPAY ==
--- NOTE | ~2022-03-19 | DEXA_ITS ---
Bone Density Report Name: KE GUDINO Age: 62 Sex: Female Ethnicity: White Date of : 1960 Indication: postmenopausal; screening for osteoporosis; height loss; prior fracture; Referring Provider: BRIANA APPIAH Study: Bone densitometry was performed. Exam Date: March 19, 2022 Accession number: [id number] Bone Density: Region BMD T-score Z-score Classification AP Spine (L1-L4) 0.952 -0.9 0.6 Normal Femoral Neck (Left) 0.854 0.0 1.4 Normal Total Hip (Left) 1.034 0.8 1.8 Normal Femoral Neck (Right) 0.822 -0.2 1.1 Normal Total Hip (Right) 1.022 0.7 1.7 Normal Total Hip Mean 1.028 0.8 1.8 Normal World Health Organization criteria for BMD impression classify patients as: Normal (T-score at or above -1.0), Osteopenia (T-score between -1.0 and -2.5), or Osteoporosis (T-score at or below -2.5). 10-year Fracture Risk: FRAX not reported because: All T-scores for Spine Total, Hip Total, Femoral Neck at or above -1.0 Previous Exams: Region Exam Age BMD T-score BMD Change BMD Change Date g/cm2 vs Baseline vs Previous AP Spine(L1-L4) 03/19/2022 62 0.952 -0.9 -0.008 0.019 09/30/2016 56 0.933 -1.0 -0.027* -0.027* 10/31/2012 52 0.960 -0.8 Total Hip(Left) 03/19/2022 62 1.034 0.8 -0.032* -0.136* 09/30/2016 56 1.170 1.9 0.104* 0.104* 10/31/2012 52 1.066 1.0 Total Hip(Right) 03/19/2022 62 1.022 0.7 -0.022 -0.094* 09/30/2016 56 1.116 1.4 0.072* 0.072* 10/31/2012 52 1.044 0.8 *Denotes significance at 95% confidence level, LSC for AP Spine = 0.022 g/cm2, LSC for Total Hip = 0.027 g/cm2 Clinical Information Provided by Patient: Has had a low trauma fracture Has used the following medications: Vitamin D, MTV, IUD in the past Patient maximum height was 67.5 Menopause Age: 56 No regular weight bearing exercise Drinks caffeinated beverages Onset of menses at age 12 Number of children 3 Missed period for more than 6 months in a row Impression: The patient has normal bone mass. The patient has risk factors, including: previous fracture. The BMD for the Total Hip(Left) decreased, changing by -0.136 since the last DXA exam. The BMD for the Total Hip(Right) decreased, changing by -0.094 since the last DXA exam. Discussion: BONE DENSITY IS ABOVE THE MINIMUM DESIRABLE LEVEL AT ALL SKELETAL SITES TESTED. Thi
== END ==
PROVIDERS: PCP Family Medicine; Visit Provider Family Medicine
DX: Z78.0 Asymptomatic menopausal state (principal)
CPT/HCPCS: 77080

== ENCOUNTER 2022-03-26 00:15 | Day surgery (SDC) | payer BC, OTHER, SELFPAY ==
[2022-03-15 12:27] VITALS: BMI 41.6
--- NOTE | 2022-03-15 12:32 | PC.NURSE ---
Report to the Outpatient Waiting Room, entrance under the green pavilion located off [facility], at time 0700 on date 03/26/22. Planned Procedure Time: 0900. Time changes happen often and if your time is changed the preop area will call you the afternoon before. - You and your visitor will be asked to self-screen and do not enter if you have any COVID symptoms. - Only one visitor is requested with a max of two and NO children visitors are allowed at this time. - The patient visitor may be requested to leave or wait in car when not with patient due to distancing restrictions. - A mask is optional within the hospital at this time. Patients may have clear liquids (water, carbonated beverages, clear teas, apple juice) until 3 hours prior to surgery with a maximum of 20 ounces. - No food from midnight until time of surgery Take the following medications with a SIP of water the morning of surgery: DESVENLAFAXINE DO NOT STOP ANY OF YOUR OTHER PRESCRIPTION MEDICATIONS PRIOR TO SURGERY?EXCEPT THE FOLLOWING Medications to discontinue per physician: VITAMINS/SUPPLEMENTS Date to take last dose: 03/22/22 Please no make-up, nail portuguese, hairspray, perfume, deodorant, or body powder the day of surgery. No jewelry (including any body piercings) or valuables the day of surgery, leave them at home. Please take a shower or bath the night before, or the morning of, surgery with an antibacterial soap. Wear comfortable, loose fitting clothing. - Jewelry must be removed prior to entering the operating room. Rings and piercings that are not removed may be cut off. - The hospital will not accept responsibility for valuables. - Please leave all valuables, including medications, at home the day of surgery. If you are going home after surgery, a licensed transport driver must drive you home. - NO public transportation without another adult if you receive anesthesia. - We recommend that an adult stay with you for 24 hours following discharge. - We also recommend that you do not drive, make important decision, drink alcoholic beverages, or take any drugs that were not prescribed by your health care provider for at least 24 hours after your discharge time. Follow any additional instructions given to you from your surgeon. If you or anyone in your household have experienced Covid symptoms in the past week, please notify your surgeon or the nurse liaison at the phone number below for possible testing. Telephone instructions given to MYKE GUDINO and asked if any additional questions and then verbalized understanding. Patient advised to call surgeon office or pre surgery nurse liaison [phone] if any additional questions.
--- NOTE | 2022-03-25 09:38 | PM.IMHP ---
H&P: HPI History of Present Illness Date/Time: 03/25/22 09:38 Chief Complaint: Urge incontinence Narrative: she has overactive bladder and urge incontinence. She is currently controlled Botox. She has InterStim device placed previously. She desires the device to removed Review of Systems Review of Systems: All systems reviewed & are unremarkable except as noted in HPI and below PMFSH Past Medical History Medical History BMI 45.0-49.9, adult Depression Diabetes mellitus Previously diet controlled with A1c of 6.23 December 2018 now A1c 9.24 March 2021 GERD (gastroesophageal reflux disease) Hiatal hernia Hypertension Kidney stones [place] (obstructive sleep apnea) Urge incontinence Surgical History Surgical History History of ankle surgery History of esophagogastroduodenoscopy (EGD) 2012 Family History Family History Mother Lung cancer Diabetes mellitus Other Family history of cardiomyopathy Family history of kidney stones Family history of malignant neoplasm of breast in first degree relative Hypertension Social History Social History Smoking status: Never smoker Second hand tobacco smoke exposure: No Alcohol intake: current Drinks per week: 1 Alcohol use details: 2/MONTH Substance use: never Substance use type: does not use Lack of Transportation: No Lack of Food: Never True Current Housing: I Have Housing Concerned About Future Housing: No Difficulty Paying Gas/Electric Bills: No Difficulty Paying for Meds: No Currently Unemployed: No Education: Bachelor's Degree Difficulty w/ Childcare or Family Care: No Living arrangements: with family Additional living arrangements comments: and daughter Occupation/Education: occupation Gender identity (if verbalized by the patient): Female Spiritual care concerns: No Agree to blood products: Yes Meds Home Medications and Allergies Home Medications Medication Instructions Recorded Confirmed Type montelukast 10 mg tablet 10 mg PO HS #90 tabs 04/24/21 03/15/22 Rx valsartan 160 1 tablet PO DAILY #90 tabs 08/19/21 03/15/22 Rx mg-hydrochlorothiazide 12.5 mg tablet metformin 500 mg tablet,extended 500 mg PO BID #180 tabs 10/22/21 03/15/22 Rx release 24 hr hydrochlorothiazide 12.5 mg capsule 12.5 mg PO DAILY #90 caps 11/15/21 03/15/22 Rx omeprazole 40 mg capsule,delayed 40 mg PO DAILY #90 caps 11/15/21 03/15/22 Rx release [facility] 12/01/21 01/27/22 Rx Verio test strips) lancets [facility] ([facility] ea 01/17/22 01/27/22 Rx Lancets) aripiprazole 5 mg tablet 5 mg PO DAILY #90 tabs 02/19/22 03/15/22 Rx nortriptyline 25 mg capsule 25 mg PO QHS #30 caps 02/21/22 03/15/22 Rx desvenlafaxine 100 mg 100 mg PO DAILY #90 tabs 02/26/22 03/15/22 Rx tablet,extended release 24 hour multivitamin 1 tablet PO DAILY 03/15/22 03/15/22 History atorvastatin 10 mg tablet 10 mg PO DAILY #90 tabs 03/23/22 Rx Allergies Allergy/AdvReac Type Severity Reaction Status Date / Time Cephalosporins Allergy Severe HIVES Verified 03/15/22 12:25 dextromethorphan Allergy Severe RASH Verified 03/15/22 12:25 povidone-iodine Allergy Severe BLISTERS Verified 03/15/22 12:25 Quinolones Allergy Severe HIVES Verified 03/15/22 12:25 soap Allergy Severe BLISTERS Verified 03/15/22 12:25 celecoxib Allergy Intermediate HIVES Verified 03/15/22 12:25 Nitrate Analogues Allergy Mild Hives Verified 03/15/22 12:25 cefaclor Allergy Unknown Unknown Verified 03/15/22 12:25 ciprofloxacin Allergy Unknown unknown Verified 03/15/22 12:25 clarithromycin Allergy Unknown unknown Verified 03/15/22 12:25 nitrofurantoin Allergy Unknown unknown Verified 03/15/22 12:25 ofloxacin Aller
--- NOTE | ~2022-03-26 | XR_ITS ---
EXAMINATION: XR fluoroscopy no charge DATE: 03/26/2022 10:21 INDICATION: Neural stimulator removal. TECHNIQUE: A single intraoperative fluoroscopic view of the pelvis was obtained. I was not present. F luoroscopy exposure time was 7 seconds. COMPARISON: CT abdomen and pelvis 03/30/2021 FINDINGS: An electrode overlies the sacrum. An instrument overlies the electrode. IMPRESSION: 1. Electrode overlying the sacrum. Reviewed, dictated and finalized at location A. [employer]
--- NOTE | 2022-03-26 07:13 | WPDHPUPDATE1 ---
History and Physical Update Update Date/Time: 03/26/22 07:13 History and Physical has been reviewed, including an updated exam of the patient. There are NO changes in the patient's condition. Risks, benefits, and alternatives have been discussed and questions answered. Patient agrees to proceed with procedure.
[2022-03-26] MEDS: LACTATED RINGERS 1,000 ML 30 ML IV CONT (09:00)
--- NOTE | 2022-03-26 09:03 | WPDANESEPPF ---
Anes - Initial Pre Proc Eval Procedure: Operation Date: 03/26/22 09:45 Proposed Procedures p Removal of Neurostimulator Implant - Jorge Alberto Llamas MD Date/Time: 03/26/22 09:03 Surgeon: Jorge Alberto Llamas MD Pre Op Diagnosis: overactive bladder Patient Data Age: 62 Gender: F Height: 1.7 m Weight: 124.2 kg Allergies Allergy/AdvReac Type Severity Reaction Status Date / Time Cephalosporins Allergy Severe HIVES Verified 03/15/22 12:25 dextromethorphan Allergy Severe RASH Verified 03/15/22 12:25 povidone-iodine Allergy Severe BLISTERS Verified 03/15/22 12:25 Quinolones Allergy Severe HIVES Verified 03/15/22 12:25 soap Allergy Severe BLISTERS Verified 03/15/22 12:25 celecoxib Allergy Intermediate HIVES Verified 03/15/22 12:25 Nitrate Analogues Allergy Mild Hives Verified 03/15/22 12:25 cefaclor Allergy Unknown Unknown Verified 03/15/22 12:25 ciprofloxacin Allergy Unknown unknown Verified 03/15/22 12:25 clarithromycin Allergy Unknown unknown Verified 03/15/22 12:25 nitrofurantoin Allergy Unknown unknown Verified 03/15/22 12:25 ofloxacin Allergy Unknown Hives / Verified 03/15/22 12:25 Red Face Penicillins Allergy Unknown unknown Verified 03/15/22 12:25 pseudoephedrine Allergy Unknown unknown Verified 03/15/22 12:25 Sulfa (Sulfonamide Allergy Unknown unknown Verified 03/15/22 12:25 Antibiotics) sulfanilamide Allergy Unknown unknown Verified 03/15/22 12:25 Home Medications Medication Instructions Recorded Confirmed Type montelukast 10 mg tablet 10 mg PO HS #90 tabs 04/24/21 03/15/22 Rx valsartan 160 1 tablet PO DAILY #90 tabs 08/19/21 03/15/22 Rx mg-hydrochlorothiazide 12.5 mg tablet metformin 500 mg tablet,extended 500 mg PO BID #180 tabs 10/22/21 03/15/22 Rx release 24 hr hydrochlorothiazide 12.5 mg capsule 12.5 mg PO DAILY #90 caps 11/15/21 03/15/22 Rx omeprazole 40 mg capsule,delayed 40 mg PO DAILY #90 caps 11/15/21 03/15/22 Rx release blood sugar diagnostic ([facility] #100 ea 12/01/21 01/27/22 Rx Verio test strips) lancets 30 gauge ([facility] #100 ea 01/17/22 01/27/22 Rx Lancets) aripiprazole 5 mg tablet 5 mg PO DAILY #90 tabs 02/19/22 03/15/22 Rx nortriptyline 25 mg capsule 25 mg PO QHS #30 caps 02/21/22 03/15/22 Rx desvenlafaxine 100 mg 100 mg PO DAILY #90 tabs 02/26/22 03/15/22 Rx tablet,extended release 24 hour multivitamin 1 tablet PO DAILY 03/15/22 03/15/22 History atorvastatin 10 mg tablet 10 mg PO DAILY #90 tabs 03/23/22 Rx Patient hx anesthesia problems: none Family hx anesthesia problems: none Results Review: All pre-operative results and documents have been reviewed as part of the pre-operative evaluation. [facility] Past Medical History Medical History BMI 45.0-49.9, adult Depression Diabetes mellitus Previously diet controlled with A1c of 6.23 December 2018 now A1c 9.24 March 2021 GERD (gastroesophageal reflux disease) Hiatal hernia Hypertension Kidney stones [place] (obstructive sleep apnea) Urge incontinence Surgical History Surgical History History of ankle surgery History of esophagogastroduodenoscopy (EGD) 2012 Family History Family History Mother Lung cancer Diabetes mellitus Other Family history of cardiomyopathy Family history of kidney stones Family history of malignant neoplasm of breast in first degree relative Hypertension Social History Social History Smoking status: Never smoker Second hand tobacco smoke exposure: No Alcohol intake: current Drinks per week: 1 Alcohol use details: 2/MONTH Substance use: never Substance use type: does not use Lack of Transportation: No Lack of Food: Never True Current Housing: I Have Housing Concerned About Future Housing: No Difficulty Paying Gas/Tomasa
[2022-03-26 09:07] LABS: Glucose Point of Care 121 mg/dl (65-105)
[2022-03-26 09:13] VITALS: BP 162/78; PULSE 75; RESP 14; TEMP 37; O2SAT 98
[2022-03-26] MEDS: BUPIVACAINE/EPINEPHRINE 0.5% 10 ML VIAL 30 ML INFILTRATE (10:18)
[2022-03-26 10:36] VITALS: BP 122/84; PULSE 81; RESP 12; O2SAT 96
--- NOTE | 2022-03-26 10:45 | W.PM.PROC2 ---
Procedure Note - Detailed Date of Procedure 03/26/22 Pre-op Diagnosis overactive bladder Urge incontinence Post-op Diagnosis Same Procedure Performed Removal of neurostimulator lead and battery Surgeon Jorge Alberto Llamas MD Anesthesia MAC and Local Indications This is a woman with urge incontinence. She is currently receiving Botox. She has InterStim device in place. She would like it removed. She understands risks of bleeding, infection, incomplete device removal, wound complications. She agrees to proceed Findings Uncomplicated device removal Description of Procedure She was correctly identified. Informed consent obtained. She from the operating room. She was given MAC anesthesia. She was placed in prone position. Lower back and buttock were prepped and draped in a sterile fashion. Time-out performed. I anesthetized the skin over the pulse generator. I incised the skin. I explanted the pulse generator. I removed the capsule around the pulse generator. I then used fluoroscopy to I would then a find my sacral lead. I anesthetized the skin. I incised the skin. I removed the sacral lead as entirety. I irrigated out all wounds. I assured hemostasis. I closed subcutaneous tissues with 2-0 Vicryl. Skin with 4-0 Vicryl. Glue was applied. He was awakened transferred to recovery room in stable condition Implants None Estimated Blood Loss -5.0
[2022-03-26] MEDS: diphenhydrAMINE HCl INJ 50 MG/ML VIAL 25 MG IV PUSH (11:02)
[2022-03-26 11:05] VITALS: BP 125/83; PULSE 67; RESP 12
--- NOTE | 2022-03-26 11:31 | SUR.PHASEII ---
1050 pt is noted to have some red blotching on face no other areas noted on rest of body. pt is getting vancomycin intravenous at this time, no itching or pain stated. dr joseph notified and he gave me an order for 25mg iv benadryl once.
--- NOTE | 2022-03-26 11:33 | SUR.PHASEII ---
1135 pt states no reaction noted from the benadryl, izzy is getting better
[2022-03-26 11:35] VITALS: BP 129/81; PULSE 65; RESP 12
== END 2022-03-26 12:05 | disposition home or self-care (01) ==
PROVIDERS: PCP Family Medicine; Visit Provider Urology
PROC: (CPT 64585; principal; 2022-03-26 09:45)
DX: Z45.42 Encounter for adjustment and management of neurostimulator (principal); N39.41 Urge incontinence; N32.81 Overactive bladder; E11.9 Type 2 diabetes mellitus without complications; I10 Essential (primary) hypertension; K21.9 Gastro-esophageal reflux disease without esophagitis; G47.33 Obstructive sleep apnea (adult) (pediatric); F32.A Depression, unspecified; Z79.84 Long term (current) use of oral hypoglycemic drugs; E66.01 Morbid (severe) obesity due to excess calories; Z68.41 Body mass index [BMI] 40.0-44.9, adult
CPT/HCPCS: 64585; 64595; 82948; 99199; J1200; J2250; J2704; J3010; J3370; J7120

== ENCOUNTER 2022-07-22 08:16 | Outpatient (CLI) | payer BC, OTHER, SELFPAY ==
[2022-07-22 08:44] LABS: Alanine Aminotransferase 33 U/L (6-35); Albumin Level 4.3 g/dL (3.5-5.1); Alkaline Phosphatase 80 U/L (38-126); Anion Gap 7 mmol/L (8-16); Aspartate Amino Transferase 33 U/L (14-36); Bilirubin,Total 0.5 mg/dL (0.2-1.3); Blood Urea Nitrogen 21 mg/dL (7-17); Carbon Dioxide 28 mmol/L (22-30); Chloride 106 mmol/L (98-107); Cholesterol 168 mg/dL (0-200); Estimated Glomerular Filt Rate 56; Glucose 134 mg/dL (65-110); HDL Direct 52 mg/dL; Sodium 141 mmol/L (137-145); Triglycerides 142 mg/dL (<150)
[2022-07-22 08:46] LABS: Hemoglobin A1C 6.2 % (<5.7)
[2022-07-22 08:56] LABS: LDL Cholesterol Direct 85 mg/dL
[2022-07-23 12:07] LABS: Creatinine Urine 232.6 mg/dL
== END 2022-07-22 08:17 | disposition home or self-care (01) ==
LOC: ANHLAB 08:17
PROVIDERS: PCP Family Medicine; Visit Provider Family Medicine
DX: E03.9 Hypothyroidism, unspecified (principal); E11.9 Type 2 diabetes mellitus without complications; E78.2 Mixed hyperlipidemia
CPT/HCPCS: 36415; 80053; 80061; 82043; 83036; 84443

== ENCOUNTER 2022-10-13 00:05 | Day surgery (SDC) | payer BC, OTHER, SELFPAY ==
[2022-09-29 13:35] VITALS: BMI 44.6
[2022-10-13 06:18] VITALS: BP 140/87; PULSE 74; RESP 17; TEMP 36.1; O2SAT 98; BMI 44.6
[2022-10-13] MEDS: LACTATED RINGERS 1,000 ML 150 ML IV CONT (06:28)
[2022-10-13 06:29] LABS: Glucose Point of Care 106 mg/dl (65-105)
--- NOTE | 2022-10-13 07:03 | WPDANESEPPF ---
Anes - Initial Pre Proc Eval Procedure: Operation Date: 10/13/22 07:30 Proposed Procedures p Colonoscopy - Sadiq Jean MD Date/Time: 10/13/22 07:03 Surgeon: Sadiq Jean MD Pre Op Diagnosis: Hx colon polyps Patient Data Age: 62 Gender: F Height: 1.7 m Weight: 129.2 kg Last Vital Signs Temp 36.1 C L 10/13/22 06:18 Pulse 74 10/13/22 06:18 Resp 17 10/13/22 06:18 BP 140/87 10/13/22 06:18 Pulse Ox 98 10/13/22 06:18 O2 Del Method Room Air 10/13/22 06:18 Allergies Allergy/AdvReac Type Severity Reaction Status Date / Time Cephalosporins Allergy Severe HIVES Verified 10/13/22 06:16 dextromethorphan Allergy Severe RASH Verified 10/13/22 06:16 povidone-iodine Allergy Severe BLISTERS Verified 10/13/22 06:16 Quinolones Allergy Severe HIVES Verified 10/13/22 06:16 soap Allergy Severe BLISTERS Verified 10/13/22 06:16 celecoxib Allergy Intermediate HIVES Verified 10/13/22 06:16 Nitrate Analogues Allergy Mild Hives Verified 10/13/22 06:16 cefaclor Allergy Unknown Unknown Verified 10/13/22 06:16 ciprofloxacin Allergy Unknown unknown Verified 10/13/22 06:16 clarithromycin Allergy Unknown unknown Verified 10/13/22 06:16 nitrofurantoin Allergy Unknown unknown Verified 10/13/22 06:16 ofloxacin Allergy Unknown Hives / Verified 10/13/22 06:16 Red Face Penicillins Allergy Unknown unknown Verified 10/13/22 06:16 pseudoephedrine Allergy Unknown unknown Verified 10/13/22 06:16 Sulfa (Sulfonamide Allergy Unknown unknown Verified 10/13/22 06:16 Antibiotics) sulfanilamide Allergy Unknown unknown Verified 10/13/22 06:16 Home Medications Medication Instructions Recorded Confirmed Type lancets 30 gauge ([facility] #100 ea 01/17/22 10/13/22 Rx Lancets) multivitamin 1 tablet PO DAILY 03/15/22 10/13/22 History atorvastatin 10 mg tablet 10 mg PO DAILY #90 tabs 03/23/22 10/13/22 Rx montelukast 10 mg tablet 10 mg PO HS #90 tabs 04/15/22 10/13/22 Rx omeprazole 40 mg capsule,delayed 40 mg PO DAILY #90 caps 05/09/22 10/13/22 Rx release blood sugar diagnostic (OneTouch #100 ea 07/15/22 10/13/22 Rx Verio test strips) aripiprazole 5 mg tablet 5 mg PO DAILY #90 tabs 08/03/22 10/13/22 Rx valsartan 160 1 tablet PO DAILY #90 tabs 08/06/22 10/13/22 Rx mg-hydrochlorothiazide 12.5 mg tablet desvenlafaxine 100 mg 100 mg PO DAILY #90 tabs 08/10/22 10/13/22 Rx tablet,extended release 24 hour dulaglutide 1.5 mg/0.5 mL 1.5 mg (0.5 mL) subcut WEEKLY #2 mL 08/25/22 10/13/22 Rx subcutaneous pen injector (Trulicity) metformin 500 mg tablet,extended 500 mg PO BID #180 tabs 10/05/22 10/13/22 Rx release 24 hr hydrochlorothiazide 12.5 mg capsule 12.5 mg PO DAILY #90 caps 10/11/22 10/13/22 Rx Laboratory Tests 10/13/22 06:23 POC Capillary Glucose 106 H mg/dl (65-105) Patient hx anesthesia problems: none Family hx anesthesia problems: none Results Review: All pre-operative results and documents have been reviewed as part of the pre-operative evaluation. [facility] Past Medical History Medical History (Updated 07/21/22 @ 15:50 by Ximena Alfaro MD) BMI 45.0-49.9, adult Depression Diabetes mellitus Previously diet controlled with A1c of 6.23 December 2018 now A1c 9.24 March 2021 GERD (gastroesophageal reflux disease) H/O adenomatous polyp of colon Hiatal hernia Hypertension Kidney stones [place]ON (obstructive sleep apnea) Urge incontinence Surgical History Surgical History History of ankle surgery History of esophagogastroduodenoscopy (EGD) 2012 Family History Family History Mother Lung cancer Diabetes mellitus Other Family history of cardiomyopathy Family history of kidney stones Family history of malignant neoplasm of breast in first degree relative Hypertension Social History Social History (Reviewed 07/21/22 @ 1
--- NOTE | 2022-10-13 07:30 | PM.HPGS ---
History of Present Illness History of Present Illness Consent: Risks, benefits, and alternatives have been discussed and questions answered. Patient agrees to proceed with procedure. Chief complaint: Hx colon polyps Narrative: Antoinette Tran is a 62 year old female with colon polyp 5 years ago Review of Systems Constitutional: Constitutional: Denies headache(s) and Denies weakness Eyes: Eyes: Denies blurry vision ENT: Reports Normal hearing present, Denies headache(s) and Denies neck pain Cardiovascular: Cardiovascular: Denies chest pain and Denies dyspnea Respiratory: Respiratory: Denies dyspnea Gastrointestinal: Gastrointestinal: Reports no additional gastrointestinal complaints Genitourinary: Genitourinary: Denies dysuria Musculoskeletal: Musculoskeletal: Denies neck pain Integumentary/Breasts: Skin/Breast: Denies dry skin Neurologic: Reports Normal hearing present, Denies headache(s) and Denies weakness Psychiatric: Psychiatric: Denies anxiety Endocrine: Endocrine: Denies change in body appearance Hematologic/Lymphatic: Hematologic/Lymphatic: Denies easy bleeding Allergic/Immunologic: Allergic/Immunologic: Denies urticaria PMFSH Past Medical History Medical History (Updated 07/21/22 @ 15:50 by Ximena Alfaro MD) BMI 45.0-49.9, adult Depression Diabetes mellitus Previously diet controlled with A1c of 6.23 December 2018 now A1c 9.24 March 2021 GERD (gastroesophageal reflux disease) H/O adenomatous polyp of colon Hiatal hernia Hypertension Kidney stones [place] (obstructive sleep apnea) Urge incontinence Surgical History Surgical History History of ankle surgery History of esophagogastroduodenoscopy (EGD) 2012 Family History Family History Mother Lung cancer Diabetes mellitus Other Family history of cardiomyopathy Family history of kidney stones Family history of malignant neoplasm of breast in first degree relative Hypertension Social History Social History Smoking status: Never smoker Second hand tobacco smoke exposure: No Alcohol intake: current Drinks per week: 1 Alcohol use details: 2/MONTH Substance use: never Substance use type: does not use Lack of Transportation: No Lack of Food: Never True Current Housing: I Have Housing Concerned About Future Housing: No Difficulty Paying Gas/Electric Bills: No Difficulty Paying for Meds: No Currently Unemployed: No Education: Bachelor's Degree Difficulty w/ Childcare or Family Care: No Living arrangements: with family Additional living arrangements comments: and daughter Occupation/Education: occupation Gender identity (if verbalized by the patient): Female Sexual Orientation (if Verbalized by the Patient): Straight or Heterosexual Spiritual care concerns: No Agree to blood products: Yes Meds Home Medications and Allergies Home Medications Medication Instructions Recorded Confirmed Type lancets 30 gauge ([facility] #[facility] ea 01/17/22 10/13/22 Rx Lancets) multivitamin 1 tablet PO DAILY 03/15/22 10/13/22 History atorvastatin 10 mg tablet 10 mg PO DAILY #90 tabs 03/23/22 10/13/22 Rx montelukast 10 mg tablet 10 mg PO HS #90 tabs 04/15/22 10/13/22 Rx omeprazole 40 mg capsule,delayed 40 mg PO DAILY #90 caps 05/09/22 10/13/22 Rx release blood sugar diagnostic ([facility] #100 ea 07/15/22 10/13/22 Rx Verio test strips) aripiprazole 5 mg tablet 5 mg PO DAILY #90 tabs 08/03/22 10/13/22 Rx valsartan 160 1 tablet PO DAILY #90 tabs 08/06/22 10/13/22 Rx mg-hydrochlorothiazide 12.5 mg tablet desvenlafaxine 100 mg 100 mg PO DAILY #90 tabs 08/10/22 10/13/22 Rx tablet,extended release 24 hour dulaglutide 1.5 mg/0.5 mL 1.5 mg (0.5 mL) subcut WEEKLY #2 mL 08/25/22 10/13/22 Rx subcutaneous pen in
[2022-10-13 07:52] VITALS: BP 108/71; PULSE 68; RESP 14; O2SAT 99
[2022-10-13 08:02] VITALS: BP 131/91; PULSE 65; RESP 23; O2SAT 100
[2022-10-13 08:12] VITALS: BP 113/69; PULSE 63; RESP 20; O2SAT 99
== END 2022-10-13 08:19 | disposition home or self-care (01) ==
PROVIDERS: PCP Family Medicine; Visit Provider Internal Medicine Gastroenterology
PROC: 0DJD8ZZ Inspection of Lower Intestinal Tract, Via Natural or Artificial Opening Endoscopic (ICD-10-PCS; CPT 45378; principal; 2022-10-13 07:30)
DX: Z12.11 Encounter for screening for malignant neoplasm of colon (principal); D12.2 Benign neoplasm of ascending colon; K64.8 Other hemorrhoids; E11.9 Type 2 diabetes mellitus without complications; I10 Essential (primary) hypertension; F32.A Depression, unspecified; G47.33 Obstructive sleep apnea (adult) (pediatric); K21.9 Gastro-esophageal reflux disease without esophagitis; E66.01 Morbid (severe) obesity due to excess calories; Z68.41 Body mass index [BMI] 40.0-44.9, adult; Z79.84 Long term (current) use of oral hypoglycemic drugs; Z79.899 Other long term (current) drug therapy
CPT/HCPCS: 45385; 82948; 88305; J2704; J7120

== ENCOUNTER 2022-12-22 09:29 | Outpatient (CLI) | payer BC, OTHER, SELFPAY ==
[2022-12-22 10:03] LABS: Alanine Aminotransferase 32 U/L (6-35); Albumin Level 4.5 g/dL (3.5-5.1); Alkaline Phosphatase 90 U/L (38-126); Anion Gap 9 mmol/L (8-16); Aspartate Amino Transferase 33 U/L (14-36); Bilirubin,Total 0.6 mg/dL (0.2-1.3); Blood Urea Nitrogen 18 mg/dL (7-17); Calcium 9.3 mg/dL (8.4-10.2); Carbon Dioxide 27 mmol/L (22-30); Chloride 103 mmol/L (98-107); Cholesterol 154 mg/dL (0-200); Estimated Glomerular Filt Rate 56; Glucose 121 mg/dL (65-110); HDL Direct 50 mg/dL; Potassium 3.4 mmol/L (3.4-5.0); Sodium 139 mmol/L (137-145); Triglycerides 91 mg/dL (<150)
[2022-12-22 10:07] LABS: Hemoglobin A1C 5.9 % (<5.7)
[2022-12-22 10:14] LABS: LDL Cholesterol Direct 76 mg/dL
== END 2022-12-22 09:30 | disposition home or self-care (01) ==
LOC: ANHLAB 09:31
PROVIDERS: PCP Family Medicine; Visit Provider Family Medicine
DX: E78.2 Mixed hyperlipidemia (principal); E11.9 Type 2 diabetes mellitus without complications
CPT/HCPCS: 36415; 80053; 80061; 83036

== ENCOUNTER 2023-05-26 09:02 | Outpatient (CLI) | payer BC, OTHER, SELFPAY ==
[2023-05-26 09:49] LABS: Alanine Aminotransferase 56 U/L (6-35); Albumin Level 4.4 g/dL (3.5-5.1); Alkaline Phosphatase 86 U/L (38-126); Anion Gap 5 mmol/L (4-12); Aspartate Amino Transferase 59 U/L (14-36); Bilirubin,Total 0.5 mg/dL (0.2-1.3); Blood Urea Nitrogen 14 mg/dL (7-17); Calcium 9.3 mg/dL (8.4-10.2); Carbon Dioxide 31 mmol/L (22-30); Chloride 103 mmol/L (98-107); Cholesterol 140 mg/dL (0-200); Estimated Glomerular Filt Rate > 60; Glucose 121 mg/dL (65-110); HDL Direct 47 mg/dL; Potassium 3.7 mmol/L (3.4-5.0); Sodium 139 mmol/L (137-145); Triglycerides 100 mg/dL (<150)
[2023-05-26 09:59] LABS: LDL Cholesterol Direct 77 mg/dL
[2023-05-26 10:19] LABS: Hemoglobin A1C 6.4 % (<5.7)
== END 2023-05-26 09:03 | disposition home or self-care (01) ==
LOC: ANHLAB 09:05
PROVIDERS: PCP Family Medicine; Visit Provider Family Medicine
DX: E78.2 Mixed hyperlipidemia (principal); E11.9 Type 2 diabetes mellitus without complications
CPT/HCPCS: 36415; 80053; 80061; 82043; 83036

== ENCOUNTER 2023-08-01 11:39 | Outpatient (CLI) | payer BC, OTHER, SELFPAY ==
--- NOTE | ~2023-08-01 | MM_ITS ---
EXAMINATION: MM screening tarsha BI w tomeka HISTORY: Screening TECHNIQUE: Craniocaudal and mediolateral oblique 3-D tomosynthesis images were obtained and synthetic 2-D images were generated. CAD analysis was submitted and interpreted. COMPARISON: Comparison to multiple prior studies sequentially, with oldest reviewed study dated 11/05. BREAST PARENCHYMAL COMPOSITION: Not dense: There are scattered areas of fibroglandular density. FINDINGS: There is no evidence of suspicious mass, calcification, or architectural distortion to sugg est malignancy in either breast. There has been no suspicious interval change. IMPRESSION: 1. No mammographic evidence of malignancy. 2. Recommend routine screening mammography in one year. BI-RADS Category 1: Negative Reviewed, dictated and finalized at location B.
== END 2023-08-01 11:40 ==
LOC: MICIMG 11:40
PROVIDERS: PCP Family Medicine; Visit Provider Obstetrics & Gynecology
DX: Z12.31 Encounter for screening mammogram for malignant neoplasm of breast (principal)
CPT/HCPCS: 77063; 77067

== ENCOUNTER 2023-12-02 10:51 | Outpatient (CLI) | payer BC, OTHER, SELFPAY ==
[2023-12-02 11:17] LABS: Basophils Absolute Auto 0.1 K/mm3 (0.0-0.1); Eosinophils Absolute Auto 0.1 K/mm3 (0-0.3); Eosinophils Percent Auto 1.9 % (0-4.4); Hematocrit 42.6 % (37.0-47.0); Hemoglobin 13.7 g/dL (12.0-15.0); Immature Granulocyte Absolute 0.02 K/mm3 (0.00-0.031); Immature Granulocyte Percent A 0.4 % (0-0.5); Lymphocytes Absolute Auto 1.53 K/mm3 (0.9-3.2); Lymphocytes Percent Auto 29.4 % (18.3-44.2); Mean Corpuscular HGB Conc 32.2 g/dl (32-36); Mean Corpuscular Hemoglobin 29.3 pg (26-34); Mean Platelet Volume 10.6 fl (7.4-10.4); Monocytes Absolute Auto 0.6 K/mm3 (0.1-0.6); Monocytes Percent Auto 11.9 % (2.6-8.5); Neutrophils Absolute Auto 2.9 K/mm3 (1.3-6.7); Neutrophils Percent Auto 55.4 % (45.5-73.1); Platelet Count Result 231 k/mm3 (150-375); Red Blood Count 4.68 M/mm3 (4.2-5.4); Red Cell Distribution Width 13.9 % (11.5-14.5); White Blood Count 5.2 K/mm3 (4.5-10.0)
[2023-12-02 11:28] LABS: Hemoglobin A1C 6.1 % (<5.7)
[2023-12-02 11:32] LABS: Alanine Aminotransferase 34 U/L (6-35); Albumin Level 4.4 g/dL (3.5-5.1); Alkaline Phosphatase 90 U/L (38-126); Anion Gap 9 mmol/L (4-12); Aspartate Amino Transferase 39 U/L (14-36); Bilirubin,Total 0.5 mg/dL (0.2-1.3); Blood Urea Nitrogen 10 mg/dL (7-17); Calcium 9.3 mg/dL (8.4-10.2); Carbon Dioxide 28 mmol/L (22-30); Chloride 101 mmol/L (98-107); Cholesterol 142 mg/dL (0-200); Estimated Glomerular Filt Rate 56; Glucose 111 mg/dL (65-110); HDL Direct 46 mg/dL; Potassium 3.5 mmol/L (3.4-5.0); Sodium 138 mmol/L (137-145); Triglycerides 96 mg/dL (<150)
[2023-12-02 11:39] LABS: Iron 44 ug/dL (37-170)
[2023-12-02 11:42] LABS: LDL Cholesterol Direct 62 mg/dL
[2023-12-02 11:51] LABS: Percent Iron Saturation 13 % (20-50)
[2023-12-02 12:10] LABS: Hepatitis B Surface Antigen Negative (Negative)
[2023-12-02 12:15] LABS: HAV RESULT Negative (Negative); Hepatitis B Core IgM Result Negative (Negative)
[2023-12-02 12:27] LABS: Hepatitis C Virus Antibody Negative (Negative)
== END 2023-12-02 10:52 | disposition home or self-care (01) ==
LOC: ANHLAB 10:55
PROVIDERS: PCP Family Medicine; Visit Provider Family Medicine
DX: R53.83 Other fatigue (principal); E78.2 Mixed hyperlipidemia; R74.8 Abnormal levels of other serum enzymes; E11.9 Type 2 diabetes mellitus without complications
CPT/HCPCS: 36415; 80053; 80061; 80074; 82728; 83036; 83540; 83550; 84443; 85025

== ENCOUNTER 2024-06-06 11:39 | Outpatient (CLI) | payer BC, OTHER, SELFPAY ==
[2024-06-06 12:08] LABS: Hematocrit 39.7 % (37.0-47.0); Hemoglobin 12.8 g/dL (12.0-15.0); Mean Corpuscular HGB Conc 32.2 g/dl (32-36); Mean Corpuscular Hemoglobin 29.9 pg (26-34); Mean Corpuscular Volume 92.8 fl (80-100); Mean Platelet Volume 10.8 fl (7.4-10.4); Platelet Count Result 253 k/mm3 (150-375); Red Blood Count 4.28 M/mm3 (4.2-5.4); Red Cell Distribution Width 13.3 % (11.5-14.5); White Blood Count 10.6 K/mm3 (4.5-10.0)
[2024-06-06 12:19] LABS: Alanine Aminotransferase 29 U/L (6-35); Albumin Level 4.4 g/dL (3.5-5.1); Alkaline Phosphatase 84 U/L (38-126); Anion Gap 10 mmol/L (4-12); Aspartate Amino Transferase 31 U/L (14-36); Bilirubin,Total 0.5 mg/dL (0.2-1.3); Blood Urea Nitrogen 16 mg/dL (7-17); Carbon Dioxide 28 mmol/L (22-30); Chloride 105 mmol/L (98-107); Cholesterol 144 mg/dL (0-200); Estimated Glomerular Filt Rate > 60; Glucose 87 mg/dL (65-110); HDL Direct 50 mg/dL; Potassium 3.9 mmol/L (3.4-5.0); Sodium 143 mmol/L (137-145); Triglycerides 108 mg/dL (<150)
[2024-06-06 12:30] LABS: LDL Cholesterol Direct 61 mg/dL
[2024-06-06 12:38] LABS: Hemoglobin A1C 5.5 % (<5.7)
[2024-06-06 13:03] LABS: Iron 65 ug/dL (37-170); Vitamin D 25 Hydroxy 53.5 ng/mL
[2024-06-06 13:09] LABS: Percent Iron Saturation 19 % (20-50)
[2024-06-06 13:13] LABS: MALB Creatinine Ratio 2.9 mg/g (0-30); Microalbumin Urine Random 8.2 mg/L (0-16.7)
[2024-06-06 13:34] LABS: Folic Acid > 20.0 ng/mL (2.76->20)
--- OUTSIDE RECORDS SUMMARY | 2024-06-06 13:37 | XMS_ITS | Clinical Summary ---
Author Organization [facility] Address [address] [place] [address] Care Team Providers Care Sweatband Shaper Name Role Phone Ximena Alfaro MD Primary Care Provider [phone] Jamil Mcduffie MD Unavailable [phone] Allergies Active Allergy Reactions Criticality Noted Date Comments Adhesive Tape-Silicones Rash Medium 10/05/2017 Cefaclor Hives Medium 11/08/2016 Celecoxib Hives Medium 07/01/2016 Clarithromycin Hives Medium 07/01/2016 Ofloxacin Hives Medium 07/01/2016 Nickel Hives Medium 08/25/2017 Penicillin G Hives Medium 07/01/2016 Penicillins Hives Medium Pseudoephedrine Hcl Hives Medium 07/01/2016 Sulfa (Sulfonamide Antibiotics) Hives Medium Sulfasalazine Hives Medium 07/01/2016 Medications atorvastatin (LIPITOR) 10 mg tabletIndicatio ns:hyperlipidem ia Take 10 mg by mouth every morning. Active desvenlafaxine succinate (PRISTIQ) 50 mg 24 hr tabletIndicatio ns:major depressive disorder Take 100 mg by mouth every morning. Active fexofenadine (JOSE) 180 mg tabletIndicatio ns:Seasonal Allergic Rhinitis Take 180 mg by mouth every morning. Active hydroCHLOROthia zide (HYDRODIURIL) 12.5 mg tabletIndicatio ns:hypertension Take 12.5 mg by mouth every morning. Active montelukast (SINGULAIR) 10 mg tabletIndicatio ns:Allergic Rhinitis Take 10 mg by mouth nightly. Active nortriptyline (PAMELOR) 10 mg capsuleIndicati ons:depression Take 50 mg by mouth nightly. Active omeprazole (PriLOSEC) 40 mg capsule TAKE ONE CAPSULE BY MOUTH TWICE A DAY for reflux 06/27/2017 Active baclofen (LIORESAL) 10 mg tabletIndicatio ns:Muscle Spasticity of Spinal Origin Take 10 mg by mouth 2 (two) times a day. Active multivitamin capsuleIndicati ons:Vitamin Deficiency Prevention Take 1 capsule by mouth nightly. Active valsartan-hydro CHLOROthiazide (DIOVAN-HCT) 160-12.5 mg per tabletIndicatio ns:hypertension Take 1 tablet by mouth every morning. Active acidophilus-pec tin, citrus 100 million cell-10 mg capsuleIndicati ons:gi Take 1 capsule by mouth every morning. Active UNABLE TO FINDIndications :supplement for vision Take 1 each by mouth every morning. Med Name:zeaxont hin-lutein Active HYDROcodone-katie taminophen (NORCO) 5-325 mg per tabletIndicatio ns:Pain Take 1 tablet by mouth every 4 (four) hours as needed for pain. 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 09/23/2017 Left wrist pain 09/22/2017 Arthritis of foot 11/28/2014 Pain of foot 01/17/2014 Surgical History Surgery Date Site/Laterality Comments SECTION CARPAL TUNNEL RELEASE ANKLE FRACTURE SURGERY ROTATOR CUFF REPAIR INSERTION / REMOVAL EPIDURAL SPINAL NEUROSTIMULATOR SINUS SURGERY 02/14/2009 - 02/13/2010 LITHOTRIPSY 02/14/2007 - 02/14/2008 TUBAL LIGATION 02/14/1995 - 02/14/1996 Medical History Medical History Date Comments Arthritis Depression Gastric reflux Headache Hiatal hernia Hypertension Kidney stone Obesity Osteoarthritis Pneumonia Sleep apnea Urinary tract infection Varicella Depression Hyperlipidemia Seasonal allergies OAB (overactive bladder) Hypertension PONV (postoperative nausea and vomiting) does well with Zofran Delayed emergence from gener al anesthesia difficulty with hard time waking up prior to getting on CPAP machine, No issues since GERD (gastroesophageal reflux disease) Anxiety Diabetes mellitus (HCC) 03/30/2021 Family History Medical History Relation Name Comments Allergy (severe) Father Jamil Arthritis Father Jamil Family history of arthritis - (Added by Conv) Heart disease Father Jamil Family history of cardiac disorder - (Added by Conv) Hypertension Father Jamil Family history of hypertension - (Added by Conv) Kidney disease Father Jamil Family histor y of kidney disease - (Added by Conv) Memory loss Father Jamil Stroke Father Jamil Family history of cerebrovascular accident - (Added by Conv) Diabetes Maternal Grandfather Stevenson Cancer Mother Gunjan Family history of malignant neoplasm - (Added by Conv) Diabetes Mother Gunjan Miscarriages / Stillbirths Mother Gunjan Diabetes Paternal Grandmother [place] Anesthesia problems Neg Hx Clotting disorder Neg Hx Malig Hypertension Neg Hx Malig Hyperthermia Neg Hx Pseudochol deficiency Neg Hx Relation Name Status Comments Father Jamil Maternal Grandfather [place] Mother Gunjan Paternal Grandmother [place] Social History Tobacco Use Types Packs/Day Years Used Date Smoking Tobacco: Never Smokeless Tobacco: Never Tobacco Cessation:Counseling Given: Not Answered Alcohol Use Standard Drinks/Week Comments Yes 0 (1 standard drink = 0.6 oz pur e alcohol) rare Comments No Sex and Gender Information Value Date Recorded Sex Assigned at Not on file 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 Gender Identity Not on file Sexual Orientation Not on file Obstetrics History Last Filed Vital Signs Vital Sign Reading Time Taken Comments Blood Pressure 110/96 10/06/2017 12:50 PM CDT Pulse 89 10/06/2017 12:30 PM CDT Temperature 36.6 C (97.9 F) 10/06/2017 12:20 PM CDT Respiratory Rate 16 10/06/2017 12:2 0 PM CDT Oxygen Saturation 93% 10/06/2017 12: 50 PM CDT Inhaled Oxygen Concentration - - Weight 124.6 kg (274 lb 11.1 oz) 10/05/2017 7:50 AM CDT Height 170.2 cm (5' 7 ) 10/05/2017 7:50 AM CDT Body Mass Index 43.02 10/05/2017 7:50 AM CDT Plan of Treatment Health Maintenance Due Date Last Done Comments Breast Cancer Screening-Mammogram 1961 Cervical Cancer Screening 1961 Colon Cancer Screening-Colonoscopy 1961 Depression Screening 1961 Hepatitis C Screening 1961 DTaP/Tdap/Td Vaccine (1 - Tdap) 02/27/1972 Hepatitis B Screening 1979 Regular Well Visit/Exam 18-64 1979 Zoster Vaccine (1 of 2) 2011 Influenza Vaccine (#1) 2023 12/18/2018 Pneumococcal vaccine <65 Aged Out No longer eligible based on patient's age to complete this topic Medical Devices Implanted Type Area Wire Coiler Machine Operator Device Identifier Shelf Expiration Date Model / Serial / Lot Allosource [id number] Freeze Dried Chips 4-10mm Graft 30ml Bone Cancellous - [id number] Implanted:Qty : 1 on 10/06/2017 by Jamil Mcduffie MD at [facility] Bone Left: Wrist [employer] 02/16/2022 [id number] / / [id number] Other - See Comments Other - see comments Right: Back Description:Neuro stimulator for overactive bladder [employer] At2-M26-S Acutrak 2 26mm Wrist Hand Ankle Foot Mini Screw Bone Nonsterile - S0. - [id number] Implanted:Qty : 1 on 10/06/2017 by Jamil Mcduffie MD at [facility] Left: Wrist [employer] [id number] 03/08/2024 AT2-M26-S / 0. / [id number] [employer] At2-M30-S Acutrak 2 3.5-3.6mm 30mm Self Cut Cannulated Variable Pitch - S0. - [id number] Implanted:Qty : 1 on 10/06/2017 by Jamil Mcduffie MD at [facility] Left: Wrist [employer] [id number] 07/24/2024 AT2-M30-S / 0. / [id number] Insurance [facility]ICAL [facility] HMO/PPO Address: [address] [address] [place] [address] [facility] FED[facility]AL [facility] PPO [facility] MEDICAL [facility] HMO/PPO Address: [address] [address] [place] [address] [facility] Member Subscriber Plan / Payer (Ef fective 2022-Present) Name:Antoinette Tran Relation to Subscriber:Self Name:Antoinette Tran Payer ID:[id number] (NAIC) Group ID:[id number] Type:BC ALLIANCE Address: [facility] [address] [place] [id number] Advance Directives For more information, please contact: [phone] * Full Code (Latest Code Status on File) Date Activated Date Inactivated Comments 10/06/2017 12:22 PM 10/06/2017 3:51 PM Care Teams Sweatband Shaper Relationship Specialty Start Date End Date Ximena Alfaro MD PCP - General Family Medicine 08/08/17 Jamil Mcduffie MD [id number] [place] [address] Referring Physician Orthopedic Surgery 10/14/17
--- OUTSIDE RECORDS SUMMARY | 2024-06-06 13:37 | XMS_ITS | Clinical Summary ---
Author Organization [facility] Address [address], [address] [address] Phone Care Team Providers Care Specialty Finishing Utility Person Name Role Phone Ximena Alfaro MD Primary Care Provider [phone] Allergies Active Allergy Reactions Criticality Noted Date Comments Clarithromycin Unknown 07/01/2016 Cefaclor Unknown 11/08/2016 Celecoxib Unknown 07/01/2016 Ofloxacin Unknown 07/01/2016 Penicillin G Unknown 07/01/2016 Pseudoephedrine Hcl Unknown 07/01/2016 Sulfa Antibiotics Unknown 07/01/2016 Medications Montelukast Sodium (SINGULAIR PO) Take 10 mg by mouth daily. Active NORTRIPTYLINE HCL PO Take 75 mg by mouth daily. Active BACLOFEN PO Take by mouth. Active MELOXICAM PO Take 15 mg by mouth daily. Active Desvenlafaxine Succinate (PRISTIQ PO) Take 50 mg by mouth daily. Active valsartan-hydro CHLOROthiazide (DIOVAN-HCT) 160-12.5 MG Tablet Take 1 Tab by mouth daily. Active hydroCHLOROthia zide 12.5 MG Tablet Take 12.5 mg by mouth daily. Active atorvastatin (LIPITOR) 10 MG Tablet Take 10 mg by mouth daily. Active fexofenadine (JOSE) 180 MG Tablet Take 180 mg by mouth daily. Active Multiple Vitamins-Minera ls (MULTIVITAMIN PO) Take 1 Tab by mouth daily. Active oxybutynin (DITROPAN-XL) 10 MG TABLET SR 24 HR Take 10 mg by mouth daily. Active melatonin 3 MG Tablet Take 5 mg by mouth nightly. Active omeprazole (PriLOSEC) 40 MG CAPSULE DELAYED RELEASE TAKE 1 CAPSULE BY MOUTH EVERY DAY 90 Cap 11/30/2019 Active Active Problems No known active problems Immunizations Immunization Administration Dates Next Due Influenza Vaccine less than 3 yrs 12/18/2018 Family History Medical History Relation Name Comments Heart Disease Father Breast Cancer Mother Skin Cancer Mother Relation Name Status Comments Father Mother Social History Tobacco Use Types Packs/Day Years Used Date Smoking Tobacco: Never Smokeless Tobacco: Never Alcohol Use Standard Drinks/Week Comments Yes 0 (1 standard drink = 0.6 oz pur e alcohol) Comments No Sex and Gender Information Value Date Recorded Sex Assigned at Not on file Legal Sex Female 7:28 PM CDT Gender Identity Not on file Sexual Orientation Not on file 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 Not on file Not on file Last Filed Vital Signs Vital Sign Reading Time Taken Comments Blood Pressure 130/84 12/28/2018 2:36 PM MAINTENANCE MECHANIC ENGINE Pulse 81 12/28/2018 2:36 PM MAINTENANCE MECHANIC ENGINE Temperature 37.2 C (98.9 F) 07/04/2018 1:08 PM CDT Respiratory Rate 16 07/04/2018 1:08 PM CDT Oxygen Saturation 96% 12/28/2018 2:36 PM MAINTENANCE MECHANIC ENGINE Inhaled Oxygen Concentration - - Weight 136.1 kg (300 lb) 12/28/2018 2:36 PM MAINTENANCE MECHANIC ENGINE Height 170.2 cm (5' 7 ) 12/28/2018 2:36 PM MAINTENANCE MECHANIC ENGINE Body Mass Index 46.99 12/28/2018 2:36 PM MAINTENANCE MECHANIC ENGINE Plan of Treatment Health Maintenance Due Date Last Done Comments TdaP Immunization 1961 Cologuard 2011 Immunochemical Fecal Occult Blood 2011 Pneumococcal Immunization (5 0+ years) (1 of 1 - PCV) 2011 Zoster Immunization (1 of 2) 2011 Colonoscopy 02/02/2023 02/02/2018, 05/22/2012 Colorectal Cancer Screening 02/02/2023 Influenza Immunization (#1) 2023 12/18/2018 SARS-COV-2 Immunization (3 - season) 2023 05/20/2020, 04/28/2020 Respiratory Syncytial Virus (RSV) Immunization (Adult) (1 - 1-dose 75+ series) 02/27/2036 02/02/2018, 05/22/2012 Hepatitis C Virus (HCV) Screening Completed 03/14/2017, 03/14/2017 Hepatitis B Immunization Aged Out No longer eligible based on patient's age to complete this topic Meningococcal Immunization (ACWY) Aged Out No longer eligible b ased on patient's age to complete this topic Rotavirus Immunization Aged Out No lo nger eligible based on patient's age to complete this topic Procedures Procedure Name Priority Date/Time Associated Diagnosis Comments COLONOSCOPY Routine 02/02/2018 HEPATITIS PANEL ACUTE (AHP) Routine 03/14/2017 Elevated liver enzymes from Last 3 Months or Most Recently Relevant to Health Maintenance Results * [facility] COLONOSCOPY (02/02/2018) Karthik Haider DO PROCEDURE/MINOR SURGICAL ORDERA BLES Final Result * HEPATITIS PANEL ACUTE (AHP) (03/14/2017) Blood specimen (specimen) Joy Martinez CALIBRATION SPECIALIST, WATER METER MECHANIC HEMATOLOGY ORDERA BLES Final Result from Last 3 Months or Most Recently Relevant to Health Maintenance Insurance Care Teams Specialty Finishing Utility Person Relationship Specialty Start Date End Date Ximena Alfaro MD [address] [place] [address] PCP - General Family Medicine 03/01/16
--- OUTSIDE RECORDS SUMMARY | 2024-06-06 13:37 | XMS_ITS | Referral Summary ---
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 09/23/2017 Left wrist pain 09/22/2017 Arthritis of foot 11/28/2014 Pain of foot 01/17/2014 Social History Tobacco Use Types Packs/Day Years Used Date Smoking Tobacco: Never Smokeless Tobacco: Never Tobacco Cessation:Counseling Given: Not Answered Alcohol Use Standard Drinks/Week Comments Yes 0 (1 standard drink = 0.6 oz pur e alcohol) rare Comments No Sex and Gender Information Value Date Recorded Sex Assigned at Not on file 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 Bone Left: Wrist [employer] 02/16/2022 [id number] / / [id number] Other - See Comments Other - see comments Right: Back Description:Neuro stimulator for overactive bladder [employer] At2-M26-S Acutrak 2 26mm Wrist Hand Ankle Foot Mini Screw Bone Nonsterile - S0. - [id number] Implanted:Qty : 1 on 10/06/2017 by Jamil Mcduffie MD at [facility] Left: Wrist [employer] [id number] 03/08/2024 AT2-M26-S / 0. / [id number] [employer] At2-M30-S Acutrak 2 3.5-3.6mm 30mm Self Cut Cannulated Variable Pitch - S0. - [id number] Implanted:Qty : 1 on 10/06/2017 by Jamil Mcduffie MD at [facility] Left: Wrist [employer] [id number] 07/24/2024 AT2-M30-S / 0. / [id number] Insurance [facility] HMO/PPO Address: [address] [address] [place] [address] [facility] FEDERAL [facility] PPO [facility] HMO/PPO Address: [address] [address] [place] [address] [facility] FEDERAL Advance Directives For more information, please contact: [phone] * Full Code (Latest Code Status on File) Date Activated Date Inactivated Comments 10/06/2017 12:22 PM 10/06/2017 3:51 PM Care Teams Tobacco Sample Puller Relationship Specialty Start Date End Date Ximena Alfaro MD PCP - General Family Medicine 08/08/17 Jamil Mcduffie MD [address] [facility] [place] [address] Referring Physician Orthopedic Surgery 10/14/17
--- OUTSIDE RECORDS SUMMARY | 2024-06-06 13:37 | XMS_ITS | Clinical Summary ---
Author Organization [facility] Administrative Offices Address [address] [place] [address] Care Team Providers Care Diversified Crops Farmer Name Role Phone Ximena Alfaro MD Primary Care Provider [phone] Social History Tobacco Use Types Packs/Day Years Used Date Smoking Tobacco: Never Assessed Comments Unknown Sex and Gender Information Value Date Recorded Sex Assigned at Not on file Legal Sex Female 9:57 AM CDT Gender Identity Not on file Sexual Orientation Not on file Plan of Treatment Health Maintenance Due Date Last Done Comments DTAP/TDAP/TD VACCINES (1 - Tdap) 02/27/1980 HPV/Cotest (21-29) 1982 CERVICAL CANCER SCREENING 1991 HPV/Cotest (30-65) 1991 PAP SMEAR 1991 BREAST CANCER SCREENING 2001 COLORECTAL SCREENING 2006 Colorectal Cancer Screening 2006 FIT-DNA Q 3 years 2006 FIT/FOBT Q 1 year 2006 Flex Sig/CT Colonography Q 5 years 2006 ZOSTER VACCINE (1 of 2) 2011 INFLUENZA VACCINE (#1) 2023 RSV VACCINE (60+ or ) (1 - 1-dose 75+ series) 02/27/2036 Insurance BCBS FEDERAL Care Teams Diversified Crops Farmer Relationship Specialty Start Date End Date Ximena Alfaro MD [address] [place] [address] PCP - General Family Practice 06/07/17
--- OUTSIDE RECORDS SUMMARY | 2024-06-06 13:37 | XMS_ITS | Encounter Summary ---
Author Organization [facility] Address [address] 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 Not on file Not on file documented as of this encounter Miscellaneous Notes * Telephone Encounter - Jean Mcclain CMA - 02/25/2020 8:28 AM GAS JOCKEY Patient notified at last refill, that future refills need to go through primary, please forward this refill to primary doctor JOCKEY documented in this encounter Plan of Treatment Not on file documented as of this encounter Visit Diagnoses Not on filedocumented in this encounter Care Teams Inventory Control/Shipping Receiving Relationship Specialty Start Date End Date Ximena Alfaro MD [address] [place] [address] PCP - General Family Medicine 03/01/16 documented as of this encounter
--- OUTSIDE RECORDS SUMMARY | 2024-06-06 13:37 | XMS_ITS | Continuity of Care Document ---
Author Organization [facility] Address [address] [place] [address] Phone Care Team Providers Care Manager Fine Dining Name Role Phone Jeremias Moncada MD Unavailable Unavailable Allergies, Adverse Reactions, Alerts Substance Reaction Status Criticality PSEUDOEPHEDRINE HCL Active No Infor mation Sulfa (Sulfonamide Antibiotics) Unknown Active No Information Penicillins Unknown Active No Information ofloxacin Unknown Active No Information celecoxib Unknown Active No Information cefaclor Unknown Active No Information clarithromycin Unknown Active No Informatio n Medications Medication Instructions Dosage Effective Dates (start - stop) Status Comments gabapentin 800 mg tablet take 1 tablet b y oral route 4 times every day 800 MG - Active Singulair 10 mg tablet take 1 tablet by oral route every day in the evening 10 MG - Active nortriptyline 50 mg capsule take 1 capsule by oral route 2 times every day 50 MG - Active PRISTIQ (unknown strength) take 1 tablet by oral route every day Not Available - Active atorvastatin 10 mg tablet take 1 tablet by oral route every day 10 MG - Active Diovan HCT 160 mg-12.5 mg tablet take 1 tablet by oral route every day 1.00 tablet - Active hydrochlorothiazide 12.5 mg tablet take 1 tablet by oral route every day 12.5 MG - Active Vicki Allergy 180 mg tablet take 1 tablet by oral route every day 180 MG - Active omeprazole 40 mg capsule,delayed release take 2 capsule by oral route 2 times every day before a meal 80 MG - Active BACLOFEN (unknown strength) Not Available - Active Procedures Procedure Date OFFICE/OUTPATIENT VISIT EST OFFICE/OUTPATIENT VISIT NEW Advance Directives Directive Yes / No Effective Date File Name No Information Encounters Encounter Description Practice Location Reason(s) For Visit Diagnoses Date Provider Providers Copied on Encounter [facility], [address], [address], tel:[phone] [facility] [address] No Information [address], [place], [place], [id number] . tel: [phone] OFFICE/OUTPAT IENT VISIT [facility], [address] [place] [address], [address], [phone] [facility] Right foot pain [address]. [address], [place], [place], [id number] . tel: [phone] OFFICE/OUTPAT IENT VISIT [facility], [address], [facility], tel:[phone] [facility] CARDIAC CATH TECHNOLOGIST RT ankle//marta t pain (chief complaint) Right foot painPain in joint of right ankle [address]. [address], [place], [place], [id number] . tel: [phone] Family History Family Member Type Diagnosis Age At Onset Paternal uncle Problem (finding) Alive and well Daughter Problem (finding) Alive and well Brother Problem (finding) Alive and well Payers Payer name Insurance type Covered democrat ID Authoriza tion(s) [facility] E2 OT [id number] [employer] Benefit Plans [facility] E2 [id number] Social History Type Description Quantity Date Captured Comments Sex Female Smoking Status No Information Chief Complaint And Reason For Visit No Information Reason For Referral Reason For Referral No Information Plan Of Treatment Date Type Action Status Referral Ordered: RADEX ANKLE 2 VIEWS RT ordered Referral Ordered: RADEX FOOT COMPL MINIMUM 3 VIEWS RT ordered Referral Ordered: CT LXTR C-MATRL RT lower extremity Appointment date/timeframe: 06/07/2017 ordered History Of Present Illness Encounter Date Complaint History Of Prese nt Illness CARDIAC CATH TECHNOLOGIST RT ankle//foot pain Functional Status Date Functional Assessmen t No Information Instructions Date Instruction Additional Infor mation activity as tolerated Related to Right foot pain apply heating pad or ice as tole rated Related to Right foot pain Activity as tolerated. Related t o Right foot pain Ice as tolerated Related to Righ t foot pain Ice or heat for comfort Related to Right foot pain Assessments Type Assessment Date No Information Patient Care Teams Name Effective Dates (start - stop) Status Members No Information
== END 2024-06-06 11:40 | disposition home or self-care (01) ==
LOC: ANHLAB 11:42
PROVIDERS: PCP Family Medicine; Visit Provider Family Medicine
DX: D64.9 Anemia, unspecified (principal); E78.2 Mixed hyperlipidemia; E11.9 Type 2 diabetes mellitus without complications; E55.9 Vitamin D deficiency, unspecified
CPT/HCPCS: 36415; 80053; 80061; 82043; 82306; 82607; 82728; 82746; 83036; 83540; 83550; 85027

== ENCOUNTER 2024-08-03 11:34 | Outpatient (CLI) | payer BC, OTHER, SELFPAY ==
--- NOTE | ~2024-08-03 | MM_ITS ---
EXAMINATION: MM screening tarsha BI w tomeka HISTORY: Screening TECHNIQUE: Craniocaudal and mediolateral oblique 3-D tomosynthesis images were obtained and synthetic 2-D images were generated. CAD analysis was submitted and interpreted. COMPARISON: Comparison to multiple prior studies sequentially, with oldest reviewed study dated Fidel rison to multiple prior studies sequentially, with oldest reviewed study dated 11/25/2014. . BREAST PARENCHYMAL COMPOSITION: Not dense: There are scattered areas of fibroglandular density. FINDINGS: There is a new focal mass in the mid outer aspect of the right breast, posterior third. The left breast is stable without evidence for malignancy. IMPRESSION: 1. New right breast mass at approximately 9:00 position, posterior third. 2. Additional mammographic views and possible breast ultrasound are recommended. BI-RADS Category 0: Incomplete: Needs additional imaging evaluation. Reviewed, dictated and finalized at location A. IMPRESSION: 1. New right breast mass at approximately 9:00 position, posterior third. 2. Additional mammographic views and possible breast ultrasound are recommended . BI-RADS Category 0: Incomplete: Needs additional imaging evaluation.
== END 2024-08-03 11:35 | disposition home or self-care (01) ==
PROVIDERS: PCP Family Medicine; Visit Provider Obstetrics & Gynecology
DX: Z12.31 Encounter for screening mammogram for malignant neoplasm of breast (principal); R92.8 Other abnormal and inconclusive findings on diagnostic imaging of breast
CPT/HCPCS: 77063; 77067

== ENCOUNTER 2024-09-06 08:06 | Outpatient (CLI) | payer BC, OTHER, SELFPAY ==
--- NOTE | ~2024-09-06 | MM_ITS ---
EXAMINATION: MM diagnostic tarsha RT w tomeka INDICATION: 64-year old female; BI-RADS 0, callback to evaluate Right breast mass COMPARISON: 08/03/2024 and 03/04/2016 TECHNIQUE: Digital breast tomosynthesis True lateral view and spot compression pain CC and MLO views of Right breast were obtained with computer-aided detection to assist in interpretation of the study. FINDINGS: There are scattered areas of fibroglandular density. The mass seen in the outer central at posterior depth in the Right breast on the screening mammogram persist as a circumscribed mass with a fatty hilum. This is compatible with benign-appearing lymph no de noted in retrospect these lymph nodes was present on the mammogram of 03/04/2016 and as not changed . IMPRESSION: Benign mammogram. RECOMMENDATION: Annual screening mammography in 12 months BI-RADS 2, BENIGN Reviewed, dictated and finalized at location B.
== END 2024-09-06 08:07 | disposition home or self-care (01) ==
LOC: MICIMG 08:07
PROVIDERS: PCP Family Medicine; Visit Provider Obstetrics & Gynecology
DX: R92.8 Other abnormal and inconclusive findings on diagnostic imaging of breast (principal)
CPT/HCPCS: 77061; 77065; G0279

== ENCOUNTER 2024-11-28 14:10 | Emergency (ER) | payer BC, OTHER, SELFPAY ==
--- NOTE | 2024-11-28 14:13 | ED.GENADULT ---
HPI - General Adult General Chief complaint: Upper Respiratory Infection Stated complaint: sore throat Source: patient Mode of arrival: ambulatory Limitations: no limitations History of Present Illness HPI narrative: Pt is a 64 y/o female presenting with c/o sore throat x 2-3 days. Reports preceding congestion, cough, rhinorrhea which have since improved. States she got it from my . States 's sx resolved without intervention. NO known exposure to COVID,STREP,PNA,FLU. No additional complaints. Related Data Home Medications ?Medication ?Instructions ?Recorded ?Confirmed ?Last Taken ?Type multivitamin 1 tablet PO DAILY 03/15/22 06/06/24 Unknown History Allergies Allergy/AdvReac Type Severity Reaction Status Date / Time Cephalosporins Allergy Severe HIVES Verified 11/28/24 14:37 dextromethorphan Allergy Severe RASH Verified 11/28/24 14:37 povidone-iodine Allergy Severe BLISTERS Verified 11/28/24 14:37 Quinolones Allergy Severe HIVES Verified 11/28/24 14:37 soap Allergy Severe BLISTERS Verified 11/28/24 14:37 celecoxib Allergy Intermediate HIVES Verified 11/28/24 14:37 Nitrate Analogues Allergy Mild Hives Verified 11/28/24 14:37 cefaclor Allergy Unknown Unknown Verified 11/28/24 14:37 ciprofloxacin Allergy Unknown unknown Verified 11/28/24 14:37 clarithromycin Allergy Unknown unknown Verified 11/28/24 14:37 nitrofurantoin Allergy Unknown unknown Verified 11/28/24 14:37 ofloxacin Allergy Unknown Hives / Verified 11/28/24 14:37 Red Face Penicillins Allergy Unknown unknown Verified 11/28/24 14:37 pseudoephedrine Allergy Unknown unknown Verified 11/28/24 14:37 Sulfa (Sulfonamide Allergy Unknown unknown Verified 11/28/24 14:37 Antibiotics) sulfanilamide Allergy Unknown unknown Verified 11/28/24 14:37 Review of Systems Review of Systems: CONSTITUTIONAL: Denies body aches, fever, chills, or sweats. EYES: Denies visual changes, redness, or discharge. ENT: Reports sore throat, Denies rhinorrhea, congestion, or otalgia. CARDIOVASCULAR: Denies chest pain, palpitations, or edema. RESPIRATORY: Denies cough or dyspnea. GASTROINTESTINAL: Denies abdominal pain, nausea, vomiting, or diarrhea. GENITOURINARY: Denies dysuria or hematuria. SKIN: Denies rash, itching, or wounds. MUSCULOSKELETAL: Denies back pain, joint pain, or myalgia. NEUROLOGIC: Denies headache, numbness, tingling, or weakness. PSYCH: Denies depression or anxiety. All systems reviewed & are unremarkable except as noted in HPI and below PMFSH Past Medical History Medical History BMI 45.0-49.9, adult Depression Diabetes mellitus Previously diet controlled with A1c of 6.23 December 2018 now A1c 9.24 March 2021 GERD (gastroesophageal reflux disease) H/O adenomatous polyp of colon Hiatal hernia Hyperlipidemia associated with type 2 diabetes mellitus Hypertension Kidney stones [place] (obstructive sleep apnea) Urge incontinence Surgical History Surgical History History of ankle surgery History of esophagogastroduodenoscopy (EGD) 2012 Family History Family History Mother Lung cancer Diabetes mellitus Other Family history of cardiomyopathy Family history of kidney stones Family history of malignant neoplasm of breast in first degree relative Hypertension Social History Social History Smoking status: Never smoker Second hand tobacco smoke exposure: No Alcohol intake: current Drinks per week: 1 Alcohol use details: 2/MONTH Substance use: never Substance use type: does not use Lack of Transportation: No Lack of Food: Never True Current Housing: I Have Housing Concerned About Future Housing: No Difficulty Paying Gas/Electric Bills: No Difficulty Paying for Meds: No Currently Unemployed: No Education: Bachelor's Degree Difficulty w/ Childcare or Family Care: No Living arrangements: with family Additional living arrangements comments: and daughter Occupation/Education: occupation Gender identity (if verbalized by the patient): Female Sexual Orientation (if Verbalized by the Patient): Straight or Heterosexual Spiritual care concerns: No Agree to blood products: Yes Exam Narrative: GENERAL: Well-appearing, well-nourished, and in no acute distress. Morbidly obese. HEAD: Normocephalic, atraumatic. EYES: EOMI. No redness or drainage. Conjunctivae normal. ENT: Mucous membranes pink and moist. Nares clear. No rhinorrhea. moderate amount of clear, postnasal drip. Mild posterior pharyngeal erythema without exudate, edema. TMs normal bilaterally. Uvula midline. NECK: Normal AROM. Supple. No lymphadenopathy. CHEST: No respiratory distress. Clear to auscultation. HEART: Regular rate and rhythm. No murmur appreciated. Normal peripheral pulses. EXTREMITIES: Normal range of motion. SKIN: Warm, dry, no rash. Capillary refill normal. Normal skin turgor. NEURO: No focal deficits. Alert and oriented x3. Gait steady. PSYCH: Normal affect. No signs of depression or anxiety. Course Course Level of Care: Express Care Visit Vital Signs Vital signs: Vital Signs Temperature 97.8 F 11/28/24 14:20 Pulse Rate 65 11/28/24 14:20 Respiratory Rate 18 11/28/24 14:20 Blood Pressure 119/74 11/28/24 14:20 Pulse Oximetry 100 11/28/24 14:20 Oxygen Delivery Room Air 11/28/24 14:20 Temperature 97.8 F 11/28/24 14:20 Pulse Rate 65 11/28/24 14:20 Respiratory Rate 18 11/28/24 14:20 Blood Pressure 119/74 11/28/24 14:20 Pulse Oximetry 100 11/28/24 14:20 Oxygen Delivery Room Air 11/28/24 14:20 Medical Decision Making Vital Signs Vital Signs: Vital Signs Temperature 97.8 F 11/28/24 14:20 Pulse Rate 65 11/28/24 14:20 Respiratory Rate 18 11/28/24 14:20 Blood Pressure 119/74 11/28/24 14:20 Pulse Oximetry 100 11/28/24 14:20 Oxygen Delivery Room Air 11/28/24 14:20 Temperature 97.8 F 11/28/24 14:20 Pulse Rate 65 11/28/24 14:20 Respiratory Rate 18 11/28/24 14:20 Blood Pressure 119/74 11/28/24 14:20 Pulse Oximetry 100 11/28/24 14:20 Oxygen Delivery Room Air 11/28/24 14:20 Lab Data Lab results reviewed: Yes I reviewed the patient's lab results. Labs: Lab Results 11/28/24 Range/Units 14:29 POC Grp A Strep Screen Negative (Negative) Discharge Plan Discharge Clinical Impression: Viral infection Pharyngitis Qualifiers: Pharyngitis/tonsillitis etiology: unspecified etiology Qualified Code(s): J02.9 - Acute pharyngitis, unspecified Patient Disposition: Home Condition: Stable Instructions: Antibiotic Form, Pharyngitis (ED) Additional Instructions: Your strep test today was negative. A throat culture will be sent to the laboratory for further testing. IF the test is positive, you will receive a phone call within 48 hours and an appropriate antibiotic will be initiated at that time. Because the signs and symptoms of group a streptococcal pharyngitis and nonstreptococcal pharyngitis broadly overlap, antibiotic therapy is not indicated when a rapid strep test is negative UNLESS the culture will take >48 hours to result. Short delays in therapy (eg, while awaiting culture results) have not been associated with increased rates of complications such as acute rheumatic fever. Until the throat culture proves otherwise, you should proceed with treating this is as a viral pharyngitis. Respiratory VIRUSES are the most common causes of sore throat. I strongly encourage you to refrain from using a cough suppressing medication when you have a productive cough as this can cause a bacterial infection, such as pneumonia, to occur. A cough suppressant can also PROLONG the duration of your cough if productive. A cough has to be initiated by a reflex. Your cough reflex is being initiated due to postnasal drip. Your lungs are clear without any evidence of a bacterial infection at this time. Viruses are everywhere and can spread like wildfire. Sx can last up to 3-4 weeks. Treatment is aimed toward your specific symptoms. You must treat your symptoms in order to feel better while the virus runs it's course. Increase fluids especially water. Do not share items with others. You can take Tylenol or ibuprofen per the package instructions for pain/fever. Wash your hands as often as possible. Go straight to ER should your symptoms become worse or should any new symptoms develop Patient Language: Botswanan Prescriptions: No Action multivitamin Tablet 1 tablet PO DAILY (DME) lancets 30 gauge misc See Rx Instructions .Route Qty: 100 10RF Rx Instructions: use As directed to check glucose QID (DME) OneTouch Verio test strips Strip See Rx Instructions .Route Qty: 100 8RF Rx Instructions: use As directed to check glucose QID ferrous sulfate 325 mg (65 mg iron) tablet,delayed release (DR/EC) 325 mg PO DAILY Qty: 100 1RF aripiprazole 5 mg tablet 5 mg PO DAILY Qty: 90 1RF Patient Comments: PT TAKES AT HS montelukast 10 mg tablet 10 mg PO HS Qty: 90 3RF Rx Instructions: TAKE 1 TABLET BY MOUTH EVERY NIGHT AT BEDTIME valsartan-hydrochlorothiazide 160-12.5 mg tablet 1 tablet PO DAILY Qty: 90 3RF desvenlafaxine 100 mg tablet extended release 24hr 100 mg PO DAILY Qty: 90 1RF metformin 500 mg tablet extended release 24 hr 500 mg PO BID Qty: 180 1RF hydrochlorothiazide 12.5 mg capsule 12.5 mg PO DAILY Qty: 90 3RF omeprazole 40 mg capsule,delayed release(DR/EC) 40 mg PO DAILY Qty: 90 3RF Rx Instructions: ONE daily HS Mounjaro 15 mg/0.5 mL pen injector 15 mg subcut WEEKLY Qty: 2 4RF atorvastatin 10 mg tablet 10 mg PO DAILY Qty: 90 3RF Follow-up/Referrals: Ximena Alfaro MD [Primary Care Provider, Family Practice]
[2024-11-28 14:20] VITALS: BP 119/74; PULSE 65; RESP 18; TEMP 36.6; O2SAT 100
[2024-11-28 14:31] LABS: EDSTREPNEGPOS1 Negative (Negative)
== END 2024-11-28 14:43 | disposition home or self-care (01) ==
PROVIDERS: Emergency Provider Registered Nurse; PCP Family Medicine
DX: B34.9 Viral infection, unspecified (principal); J02.9 Acute pharyngitis, unspecified; E11.9 Type 2 diabetes mellitus without complications; Z79.84 Long term (current) use of oral hypoglycemic drugs; Z79.85 Long-term (current) use of injectable non-insulin antidiabetic drugs; I10 Essential (primary) hypertension; E78.5 Hyperlipidemia, unspecified; K21.9 Gastro-esophageal reflux disease without esophagitis; F32.A Depression, unspecified
CPT/HCPCS: 87081; 87880; 99213; G0463

== ENCOUNTER 2024-12-12 11:45 | Outpatient (CLI) | payer BC, OTHER, SELFPAY ==
[2024-12-12 12:48] LABS: Hematocrit 42.0 % (37.0-47.0); Hemoglobin 13.8 g/dL (12.0-15.0); Immature Granulocyte Percent A 0.1 % (0-0.5); Lymphocytes Absolute Auto 4.54 K/mm3 (0.9-3.2); Mean Corpuscular HGB Conc 32.9 g/dl (32-36); Mean Corpuscular Hemoglobin 29.8 pg (26-34); Mean Corpuscular Volume 90.7 fl (80-100); Nucleated Red Blood Cells Absolute Auto 0.000 K/mm3 (0.0-0.012); Nucleated Red Blood Cells Perc 0.0 % (0.0-0.2); Platelet Count Result 316 k/mm3 (150-375); Red Blood Count 4.63 M/mm3 (4.2-5.4); White Blood Count 9.0 K/mm3 (4.5-10.0)
[2024-12-12 13:03] LABS: Iron 71 ug/dL (37-170)
[2024-12-12 13:11] LABS: Alanine Aminotransferase 27 U/L (6-35); Albumin Level 4.5 g/dL (3.5-5.1); Alkaline Phosphatase 79 U/L (38-126); Anion Gap 10 mmol/L (4-12); Aspartate Amino Transferase 34 U/L (14-36); Bilirubin,Total 0.5 mg/dL (0.2-1.3); Blood Urea Nitrogen 16 mg/dL (7-17); Calcium 9.5 mg/dL (8.4-10.2); Carbon Dioxide 28 mmol/L (22-30); Chloride 102 mmol/L (98-107); Cholesterol 165 mg/dL (0-200); Estimated Glomerular Filt Rate > 60; Glucose 90 mg/dL (65-110); HDL Direct 44 mg/dL; Potassium 4.0 mmol/L (3.4-5.0); Sodium 140 mmol/L (137-145); Total Protein 8.2 g/dL (6.3-8.2); Triglycerides 105 mg/dL (<150)
[2024-12-12 13:12] LABS: Percent Iron Saturation 21 % (20-50)
--- OUTSIDE RECORDS SUMMARY | 2024-12-12 13:22 | XMS_ITS | Clinical Summary ---
Author Organization [facility] Administrative Offices Address [address] [place] [address] Care Team Providers Care Aeronautical Engineering Professor Name Role Phone Ximena Alfaro MD Primary Care Provider [phone] Social History Tobacco Use Types Packs/Day Years [...] (1 of 2) 2011 INFLUENZA VACCINE (#1) 2024 RSV VACCINE (60+ or ) (1 - 1-dose 75+ series) 02/27/2036 Insurance BCBS FEDERAL Care Teams Aeronautical Engineering Professor Relationship Specialty Start Date End Date Ximena Alfaro MD [address] [place] [address] PCP - General Family Practice 06/07/17
--- OUTSIDE RECORDS SUMMARY | 2024-12-12 13:22 | XMS_ITS | Clinical Summary ---
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 Not on file Not on file Last Filed Vital Signs Vital Sign Reading Time Taken Comments Blood Pressure 130/84 12/28/2018 2:36 PM CRUSHER SUPERVISOR Pulse 81 12/28/2018 2:36 PM CRUSHER SUPERVISOR Temperature 37.2 C (98.9 F) 07/04/2018 1:08 PM CDT Respiratory Rate 16 07/04/2018 1:08 PM CDT Oxygen Saturation 96% 12/28/2018 2:36 PM CRUSHER SUPERVISOR Inhaled Oxygen Concentration - - Weight 136.1 kg (300 lb) 12/28/2018 2:36 PM CRUSHER SUPERVISOR Height 170.2 cm (5' 7) 12/28/2018 2:36 PM CRUSHER SUPERVISOR Body Mass Index 46.99 12/28/2018 2:36 PM CRUSHER SUPERVISOR Plan of Treatment Health Maintenance Due Date Last Done Comments TdaP Immunization 1961 Pap Smear 1982 Cervical Cancer Screening (CCS) 1991 HPV/Cotest 1991 Cologuard 2006 Immunochemical Fecal Occult Blood 2006 Pneumococcal Immunization (5 0+ years) (1 of 1 - PCV) 2011 Zoster Immunization (1 of 2) 2011 Colonoscopy 02/02/2023 02/02/2018, 05/22/2012 Colorectal Cancer Screening 02/02/2023 Influenza Immunization (#1) 2024 12/18/2018 SARS-COV-2 Immunization ( season) 2024 05/20/2020, 04/28/2020 Respiratory Syncytial Virus (RSV) Immunization (Adult) (1 - 1-dose 75+ series) 02/27/2036 Hepatitis C Virus (HCV) Screening Completed 03/14/2017, 03/14/2017 Hepatitis B Immunization Aged Out No longer eligible based on patient's age to complete this topic Human Papillomavirus (HPV) Immunization Aged Out No longer eligible b ased [...] Recently Relevant to Health Maintenance Results * COLONOSCOPY (02/02/2018) us Karthik Haider DO PROCEDURE/MINOR SURGICAL ORDERA BLES Final Result * HEPATITIS PANEL ACUTE (AHP) (03/14/2017) Blood specimen (specimen) us Joy Martinez APRN, NAILHEAD OPERATOR HEMATOLOGY ORDERA BLES Final Result from Last 3 Months or Most Recently Relevant to Health Maintenance Insurance [facility] [place] [address] Care Teams Placement Specialist Relationship Specialty Start Date End Date Ximena Alfaro MD [address] [place] [address] PCP - General Family Medicine 03/01/16
--- OUTSIDE RECORDS SUMMARY | 2024-12-12 13:22 | XMS_ITS | Clinical Summary ---
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 [...] GERD (gastroesophageal reflux disease) Anxiety Diabetes mellitus 03/30/2021 Family History Medical History Relation Name [...] / Stillbirths Mother Gunjan Diabetes Paternal Grandmother Mariposa Anesthesia problems Neg Hx Clotting disorder Neg [...] on file Legal Sex Female 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 Bone Left: Wrist [employer] 02/16/2022 [id number] / / [id number] Other - See Comments Other - see comments Right: Back Description:Neuro stimulator for overactive bladder [employer] At2-M26-S Acutrak 2 26mm Wrist Hand Ankle Foot Mini Screw Bone Nonsterile - S0. - [id number] Implanted:Qty : 1 on 10/06/2017 by Jamil Mcduffie MD at [facility] Left: Wrist [employer] [id number] 03/08/2024 AT2-M26-S / 0. / [id number] [employer] At2-M30-S Acutrak 2 3.5-3.6mm 30mm Self Cut Cannulated Variable Pitch - S0. - [id number] Implanted:Qty : 1 on 10/06/2017 by Jamil Mcduffie MD at [facility] Left: Wrist [employer] [id number] 07/24/2024 AT2-M30-S / 0. / [id number] Insurance [facility] PPO [facility] Member Subscriber Plan / Payer (Ef fective 2017-Present) Name:Antoinette Tran Relation to Subscriber:Self Name:ANTOINETTE TRAN Payer ID:[id number] (NAIC) Type:MANAGED CARE OTHER Address: [address] [place] [id number] [facility] FEDERAL Member Subscriber Plan / Payer (Ef fective 2022-Present) Name:Antoinette Tran Relation to Subscriber:Self Name:Antoinette Tran Payer ID:[id number] (NAIC) Group ID:[id number] Type:BC ALLIANCE Address: [facility] [id number] [place] [id number] Advance Directives For more information, please contact: [phone] * Full Code (Latest Code Status on File) Date Activated Date Inactivated Comments 10/06/2017 12:22 PM 10/06/2017 3:51 PM Care Teams Prison Teacher Relationship Specialty Start Date End Date Ximena Alfaro MD PCP - General Family Medicine 08/08/17 Jamil Mcduffie MD [address] [facility] [address] [place] [address] Referring Physician Orthopedic Surgery 10/14/17
--- OUTSIDE RECORDS SUMMARY | 2024-12-12 13:22 | XMS_ITS | Encounter Summary ---
Author Organization [facility] Address [address] 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 Not on file Not on file documented as of this encounter Miscellaneous Notes * Telephone Encounter - Jean Mcclain CMA - 02/25/2020 8:28 AM FUNERAL DIRECTOR/EMBALMER/OWNER Patient notified at last refill, that future refills need to go through primary, please forward this refill to primary doctor RAL DIRECTOR/EMBALMER/OWNER documented in this encounter Plan of Treatment Not on file documented as of this encounter Visit Diagnoses Not on filedocumented in this encounter Care Teams Retail Advertising Sales Manager Relationship Specialty Start Date End Date Ximena Alfaro MD [address] [place] [address] PCP - General Family Medicine 03/01/16 documented as of this encounter
[2024-12-12 14:29] LABS: Hemoglobin A1C 5.4 % (<5.7)
== END 2024-12-12 11:46 | disposition home or self-care (01) ==
LOC: ANHLAB 11:48
PROVIDERS: PCP Family Medicine Adolescent Medicine
DX: E11.69 Type 2 diabetes mellitus with other specified complication (principal); E78.5 Hyperlipidemia, unspecified; R53.83 Other fatigue; E78.2 Mixed hyperlipidemia
CPT/HCPCS: 36415; 80053; 80061; 83036; 83540; 83550; 85025

== ENCOUNTER 2025-01-18 10:07 | Outpatient (CLI) | payer BC, OTHER, SELFPAY ==
--- NOTE | ~2025-01-18 | DEXA_ITS ---
Bone Density Report Name: KE GUDINO Age: 64 Sex: Female Ethnicity: White Date of : 1960 Indication: postmenopausal; screening for osteoporosis; Referring Provider: DEANDRE MCGEE Study: Bone densitometry was performed. Exam Date: January 18, 2025 Accession number: [id number] Bone Density: Region BMD T-score Z-score Classification AP Spine(L1-L4) 0.970 -0.7 1.0 Normal Femoral Neck (Left) 0.787 -0.6 0.9 Normal Total Hip (Left) 0.985 0.4 1.5 Normal Femoral Neck (Right) 0.769 -0.7 0.7 Normal Total Hip (Right) 0.971 0.2 1.4 Normal Total Hip Mean 0.978 0.3 1.5 Normal World Health Organization criteria for BMD impression classify patients as: Normal (T-score at or above -1.0), Osteopenia (T-score between -1.0 and -2.5), or Osteoporosis (T-score at or below -2.5). 10-year Fracture Risk: FRAX not reported because: All T-scores for Spine Total, Hip Total, Femoral Neck at or above -1.0 Previous Exams: -- Region Exam Age BMD T-score BMD Change BMD Change Date g/cm2 vs Baseline vs Previous -- AP Spine (L1-L4) 01/18/2025 64 0.970 -0.7 1.0% 1.8% 03/19/2022 62 0.952 -0.9 -0.8% 2.0% 09/30/2016 56 0.933 -1.0 -2.8%* -2.8%* 10/31/2012 52 0.960 -0.8 Total Hip(Left) 01/18/2025 64 0.985 0.4 -7.6%# -4.7%# 03/19/2022 62 1.034 0.8 -3.0%* -11.6%* 09/30/2016 56 1.170 1.9 9.8%* 9.8%* 10/31/2012 52 1.066 1.0 Total Hip(Right) 01/18/2025 64 0.971 0.2 -7.0%# -5.0%# 03/19/2022 62 1.022 0.7 -2.1% -8.4%* 09/30/2016 56 1.116 1.4 6.9%* 6.9%* 10/31/2012 52 1.044 0.8 -- *Denotes significance at 95% confidence level, LSC for AP Spine = 0.022 g/cm2, LSC for Total Hip = 0.027 g/cm2 # Denotes dissimilar scan types or analysis methods Clinical Information Provided by Patient: Has used the following medications: Vitamin D Patient maximum height was 67 Menopause Age: 56 No regular weight bearing exercise Does not regularly consume dairy products Drinks caffeinated beverages Onset of menses at age 13 Number of children 3 Impression: The patient has normal bone mass. Unable to evaluate interval change due to the use of different scan modes. Discussion: BONE DENSITY IS ABOVE THE MINIMUM DESIRABLE LEVEL AT ALL SKELETAL SITES TESTED. This patient?s bone mineral density is above the minimum desirable level (T-score -1.0 or better) at all sites measured. The patient should follow a healthful lifestyle (good nutrition with adequate calcium and vitamin D, and appropriate weight-bearing exercise). Follow-Up: Consider repeating this study in 5 years or sooner if there is some new clinical indication. Reported by: ROSALIA on 01/18/2025 10:29:00 AM. Reviewed, dictated and finalized at location A.
== END 2025-01-18 10:08 | disposition home or self-care (01) ==
LOC: MICIMG 10:07
DX: Z78.0 Asymptomatic menopausal state (principal)
CPT/HCPCS: 77080